=== PATIENT | male | born 1980 | race American Indian/Alaskan Native ===

== ENCOUNTER 2017-05-03 11:25 | Emergency (ER) | payer OTHER, MEDICAID ==
[2017-05-03 11:33] VITALS: BP 122/75; PULSE 97; RESP 18; TEMP 99.2; O2SAT 98
--- NOTE | 2017-05-03 13:11 | ED PDOC ---
HPI: Dental Pain/Injury Time Seen by Provider: 05/03/17 11:57 Chief Complaint (Nursing): Dental Pain Chief Complaint (Provider): Dental Pain History Per: Patient History/Exam Limitations: no limitations Onset/Duration Of Symptoms: Other (x 1 week) Current Symptoms Are (Timing): Still Present Additional Complaint(s): Andres is a 37 year old male who presents to the emergency department complaining of left lower tooth pain for 1 week. Patient reports tooth hurts when he eats and chews, but is not constant. Denies taking pain medications or antibiotics. Patient reports he saw dentist and did an X-Ray. Patient was told everything was okay. PMD: Alphonso Hanks Past Medical History Reviewed: Historical Data, Nursing Documentation, Vital Signs Vital Signs: Last Vital Signs Temp 99.2 F 05/03/17 11:29 Pulse 97 H 05/03/17 11:29 Resp 18 05/03/17 11:29 BP 122/75 05/03/17 11:29 Pulse Ox 98 05/03/17 11:29 - Medical History PMH: No Chronic Diseases - Surgical History Surgical History: No Surg Hx - Family History Family History: States: Unknown Family Hx - Allergies Allergies/Adverse Reactions: Allergies Allergy/AdvReac Type Severity Reaction Status Date / Time No Known Allergies Allergy Verified 05/03/17 11:29 Review of Systems ROS Statement: Except As Marked, All Systems Reviewed And Found Negative ENT: Positive for: Other (Left Lower Tooth Pain) Physical Exam - Reviewed Nursing Documentation Reviewed: Yes Vital Signs Reviewed: Yes - Physical Exam Appears: Positive for: Well ((+): Comfortable), No Acute Distress ENT: Positive for: Normal ENT Inspection, Other (2nd molar left lower jaw: cavity with filling noted with no tenderness or sweling) Neck: Positive for: Normal ((+): No Lymphadenopathy) Extremity: Positive for: Normal ROM Neurologic/Psych: Positive for: Alert, Oriented (x 3) - ECG O2 Sat by Pulse Oximetry: 98 (RA) Pulse Ox Interpretation: Normal Medical Decision Making Medical Decision Making: Impression: Toothache r/o Tooth Infection Patient will be given Augmentin (Antibiotic) and must follow up with dentist. Scribe Attestation: Documented by Francisco Granados, acting as a scribe for Dawson Covarrubias MD Provider Scribe Attestation: All medical record entries made by the Scribe were at my direction and personally dictated by me. I have reviewed the chart and agree that the record accurately reflects my personal performance of the history, physical exam, medical decision making, and the department course for this patient. I have also personally directed, reviewed, and agree with the discharge instructions and disposition. Disposition - Clinical Impression Clinical Impression: Toothache - Patient ED Disposition Is Patient to be Admitted: No Doctor Will See Patient In The: Office Counseled Patient/Family Regarding: Studies Performed, Diagnosis, Need For Followup - Disposition Referrals: [facility] [Outside] Podiatry Clinic [Outside] Disposition: Routine/Home Disposition Time: 12:47 Condition: GOOD Additional Instructions: Follow up with your PCP in 2-3 days. Instructions: Toothache (ED)
== END 2017-05-03 14:45 | disposition home or self-care (01) ==
LOC: H.ER 11:25
DX: K08.89 Other specified disorders of teeth and supporting structures (principal)

== ENCOUNTER 2017-06-02 11:45 | Emergency (ER) | payer MEDICAID, MEDICARE, OTHER ==
[2017-06-02 12:25] VITALS: RESP 18; TEMP 97.9; O2SAT 100
[2017-06-02] MEDS ORDERED: Sodium Chloride 0.9% 1,000 ML IV STA (12:49)
--- NOTE | 2017-06-02 12:50 | ED PDOC ---
HPI: Headache Time Seen by Provider: 06/02/17 12:18 Chief Complaint (Nursing): Headache Chief Complaint (Provider): Headache History Per: Patient History/Exam Limitations: no limitations Current Symptoms Are (Timing): Still Present Pain Scale Rating Of: 8 Additional Complaint(s): Andres is a 37 y/o male with a history of depression and bipolar disorder who presents to the ED complaining of a headache rated as 8/10 in severity. Patient also complains of some diarrhea and congestion but denies fever, vomiting, cough , body aches, chills, or throat pain. No meds taken for headache pain. Patient states this is not the worst headache of his life. PMD: Dr. Hanks Past Medical History Reviewed: Historical Data, Nursing Documentation, Vital Signs Vital Signs: Last Vital Signs Temp 97.9 F 06/02/17 12:21 Pulse 60 06/02/17 12:21 Resp 18 06/02/17 12:21 BP 111/61 06/02/17 12:21 Pulse Ox 100 06/02/17 12:21 - Medical History PMH: Bipolar Disorder, Depression - Surgical History Other surgeries: ingrown toenail removal - Family History Family History: States: No Known Family Hx - Living Arrangements Living Arrangements: With Family - Social History Current smoker - smoking cessation education provided: No Alcohol: None Drugs: Denies - Home Medications Home Medications: Ambulatory Orders Medication Instructions Recorded Amoxicillin/Clavulanate [Augmentin 1 tab PO BID #14 tab 05/03/17 875 MG-125 MG] Ibuprofen [Motrin] 600 mg PO Q6 PRN #15 tab 06/02/17 - Allergies Allergies/Adverse Reactions: Allergies Allergy/AdvReac Type Severity Reaction Status Date / Time No Known Allergies Allergy Verified 06/02/17 12:43 Review of Systems ROS Statement: Except As Marked, All Systems Reviewed And Found Negative Constitutional: Negative for: Fever, Chills, Other (body aches) ENT: Positive for: Nose Congestion. Negative for: Throat Pain Cardiovascular: Negative for: Chest Pain Respiratory: Negative for: Cough Gastrointestinal: Positive for: Diarrhea. Negative for: Nausea, Vomiting, Abdominal Pain Genitourinary Male: Negative for: Dysuria Neurological: Positive for: Headache. Negative for: Weakness, Numbness, Incoordination, Change in Speech, Confusion, Seizures, Altered Mental Status, Dizziness Physical Exam - Reviewed Nursing Documentation Reviewed: Yes Vital Signs Reviewed: Yes - Physical Exam Appears: Positive for: Well, Non-toxic, No Acute Distress Head Exam: Positive for: ATRAUMATIC Skin: Positive for: Normal Color, Warm, Dry Eye Exam: Positive for: Normal appearance ENT: Positive for: Normal ENT Inspection Neck: Positive for: Normal, Painless ROM. Negative for: Pain On Movement Of Neck Cardiovascular/Chest: Positive for: Regular Rate, Rhythm. Negative for: Murmur Respiratory: Positive for: Normal Breath Sounds. Negative for: Respiratory Distress Gastrointestinal/Abdominal: Positive for: Normal Exam, Soft. Negative for: Tenderness Back: Positive for: Normal Inspection Extremity: Positive for: Normal ROM. Negative for: Pedal Edema Neurologic/Psych: Positive for: Alert, Oriented. Negative for: Motor/Sensory Deficits - Laboratory Results Result Diagrams: 06/02/17 13:17 06/02/17 13:17 - ECG O2 Sat by Pulse Oximetry: 100 (RA) Pulse Ox Interpretation: Normal Medical Decision Making Medical Decision Making: Time: 12:48 Initial Impression: 37 y/o male with headache and generalized malaise Initial Plan: --CMP --CBC --Motrin --Tylenol --Flu Swab --IVF Flu Swab: Negative Patient states headache resolved completely after medications were administered. Patient feels much better. He tolerated meal in ED. Prescription given for Motrin to take as needed for headache pain, advised fluids, rest and follow-up with primary doctor. Scribe Attestation: Documented by Gustavo Ashton, acting as a scribe for Erica Khan PA-C. Provider Scribe Attestation: All medical record entries made by the Scribe were at my direction and personally dictated by me. I have reviewed the chart and agree that the record accurately reflects my personal performance of the history, physical exam, medical decision making, and the department course for this patient. I have also personally directed, reviewed, and agree with the discharge instructions and disposition. Disposition - Clinical Impression Clinical Impression: Headache - Patient ED Disposition Is Patient to be Admitted: No Counseled Patient/Family Regarding: Studies Performed, Diagnosis, Need For Followup, Rx Given - Disposition Referrals: Alphonso Hanks MD [Family Provider] - Disposition: Routine/Home Disposition Time: 13:58 Condition: IMPROVED Additional Instructions: Take prescription medicines directed as needed for headache. Plenty of fluids and get plenty of rest. Follow up with primary doctor in 2-3 days. Prescriptions: Ibuprofen [Motrin] 600 mg PO Q6 PRN #15 tab PRN Reason: Pain, Moderate (4-7) Instructions: Headache, Adult (DC) Forms: [facility] ([place]), [facility] ED School/Work Excuse
[2017-06-02 13:27] LABS: BASO % 0.2 % (0.0-2.0); EOS % 0.2 % (0.0-4.0); HEMOGLOBIN 12.4 g/dL (12.0-18.0); LYMPH # 0.8 K/uL (1.0-4.3); LYMPH % 5.5 % (20.0-40.0); MEAN CELL VOLUME 77.4 fl (80.0-94.0); MEAN CORPUSCULAR HEMOGLOBIN 24.8 pg (27.0-31.0); MEAN PLATELET VOLUME 9.4 fl (7.2-11.7); MONO # 0.6 K/uL (0.0-0.8); MONO % 3.9 % (0.0-10.0); NEUT # 13.6 K/uL (1.8-7.0); NEUT % 90.2 % (50.0-75.0); NRBC % 0.1 % (0.0-0.0); PLATELET COUNT 187 K/uL (130-400); RBC 5.02 Mil/uL (4.40-5.90); WHITE BLOOD COUNT 15.1 K/uL (4.8-10.8)
[2017-06-02 13:40] LABS: ALB/GLOB RATIO 1.2 (1.0-2.1); ALBUMIN 4.1 g/dL (3.5-5.0); ALT/SGPT 31 U/L (21-72); AST/SGOT 29 U/L (17-59); BLOOD UREA NITROGEN 14 mg/dl (9-20); CALCIUM 9.5 mg/dL (8.4-10.2); GFR AFRICAN-AMERICAN > 60; GFR NON-AFRICAN AMERICAN > 60
[2017-06-02 14:12] LABS: LYMPHOCYTE 9 % (20-50); MONOCYTE 5 % (0-10); NEUTROPHIL 86 % (42-75); TOTAL CELLS COUNTED 100
[2017-06-02 14:13] LABS: ANISOCYTOSIS SLIGHT; MICROCYTOSIS SLIGHT; PLATELET ESTIMATE NORMAL (NORMAL)
[2017-06-02 15:16] VITALS: BP 111/60; PULSE 71
== END 2017-06-02 15:16 | disposition home or self-care (01) ==
LOC: H.ER 11:45
DX: R51 Headache (principal); F31.9 Bipolar disorder, unspecified
CPT/HCPCS: 80053; 85025; 87804; 99284; J7040

== ENCOUNTER 2017-06-07 15:27 | Inpatient (IN) | payer OTHER, MEDICAID ==
[2017-06-07 15:37] VITALS: O2SAT 100
--- NOTE | 2017-06-07 15:43 | ED PDOC ---
HPI: Psych/Substance Abuse Time Seen by Provider: 06/07/17 15:39 Chief Complaint (Nursing): Psychiatric Evaluation Chief Complaint (Provider): suicidal ideation History Per: Patient Additional Complaint(s): 37-year-old male with history of depression, bipolar disorder and schizophrenia presents to emergency department with suicidal ideation. Patient states over the weekend he had thoughts of overdosing on his medications. He did not do so. Patient states he feels as if his meds are not helping him. He offers no medical complaints and denies alcohol or drug use. Past Medical History Reviewed: Historical Data, Nursing Documentation, Vital Signs Vital Signs: Last Vital Signs Temp 97.8 F 06/07/17 15:31 Pulse 123 H 06/07/17 15:31 Resp 18 06/07/17 15:31 BP 122/75 06/07/17 15:31 Pulse Ox 100 06/07/17 15:31 - Medical History PMH: Bipolar Disorder, Depression, Schizophrenia - Family History Family History: States: No Known Family Hx - Living Arrangements Living Arrangements: With Family - Social History Current smoker - smoking cessation education provided: No Alcohol: None Drugs: Denies - Home Medications Home Medications: Ambulatory Orders Medication Instructions Recorded DULoxetine [Cymbalta] 60 mg PO DAILY 06/07/17 [place] Carbonate [[place] 300 mg PO Q12 06/07/17 Carbonate 300MG] Multivitamin [Multi-Vitamin Daily] 1 tab PO DAILY 06/07/17 Paliperidone Palmitate [Invega 156 mg IM Q30D 06/07/17 Sustenna] - Allergies Allergies/Adverse Reactions: Allergies Allergy/AdvReac Type Severity Reaction Status Date / Time No Known Allergies Allergy Verified 06/02/17 12:43 Review of Systems ROS Statement: Except As Marked, All Systems Reviewed And Found Negative Psych: Positive for: Depression, Suicidal ideation Physical Exam - Reviewed Nursing Documentation Reviewed: Yes Vital Signs Reviewed: Yes - Physical Exam Appears: Positive for: Well, Non-toxic, No Acute Distress Skin: Negative for: Rash Eye Exam: Positive for: Normal appearance Cardiovascular/Chest: Positive for: Regular Rate, Rhythm Respiratory: Positive for: Normal Breath Sounds Gastrointestinal/Abdominal: Positive for: Soft. Negative for: Tenderness, Distended, Guarding, Rebound Extremity: Positive for: Normal ROM Neurologic/Psych: Positive for: Alert, Oriented - Laboratory Results Result Diagrams: 06/07/17 16:27 06/07/17 16:27 - ECG O2 Sat by Pulse Oximetry: 100 Pulse Ox Interpretation: Normal - Other Rad CXR X-Ray: Interpreted by Me, Viewed By Me X-Ray Interpretation: no acute finding Medical Decision Making Medical Decision Makin37 year old male with suicidal ideation Plan: 1:1 bedside observation Crisis eval CBC CMP BAL UDS UA CXR [place] level As per crisis counselor and psychiatrist conditioner tender, Dr Brown, patient does meet criteria for admission. Patient agrees with stay. Patient is medically stable for psychiatric admission. Disposition - Clinical Impression Clinical Impression: Depression - Disposition Disposition Time: 18:53 Condition: FAIR - Pt Status Changed To: Hospital Disposition Of: Inpatient - Admit Certification Admit to Inpatient:: After my assessment, the patient will require hospitalization for at least two midnights. This is because of the severity of symptoms shown, intensity of services needed, and/or the medical risk in this patient being treated as an outpatient. Results - Lab Results Lab Results: 06/07/17 06/07/17 06/07/17 16:27 16:27 16:27 WBC 8.2 RBC 5.47 Hgb 13.7 Hct 42.7 MCV 78.0 L MCH 25.0 L MCHC 32.1 L RDW 15.3 H Plt Count 222 MPV 9.9 Neut % (Auto) 73.1 Lymph % (Auto) 18.5 L [place] % (Auto) 5.3 Eos % (Auto) 2.3 Baso % (Auto) 0.8 Neut # (Auto) 6.0 Lymph # (Auto) 1.5 [place] # (Auto) 0.4 Eos # (Auto) 0.2 Baso # (Auto) 0.1 Sodium Potassium Chloride Carbon Dioxide Anion Gap BUN Creatinine Est GFR ( Amer) Est GFR (Non-Af Amer) Random Glucose Calcium Total Bilirubin AST ALT Alkaline Phosphatase Total Protein Albumin Globulin Albumin/Globulin Ratio Urine Color Yellow Urine Clarity Slighty-cloudy Urine pH 6.0 Ur Specific [place] 1.031 H Urine Protein 30 Urine Glucose (UA) Neg Urine Ketones Trace Urine Blood Negative Urine Nitrate Negative Urine Bilirubin Negative Urine Urobilinogen 2.0 Ur Leukocyte Esterase Trace Urine RBC (Auto) 2 Urine Microscopic WBC < 1 Urine Opiates Screen Negative Urine Methadone Screen Negative Ur Barbiturates Screen Negative Ur Phencyclidine Scrn Negative Ur Amphetamines Screen Negative U Benzodiazepines Scrn Negative U Oth Cocaine Metabols Negative U Cannabinoids Screen Negative Alcohol, Quantitative 06/07/17 16:27 WBC RBC Hgb Hct MCV MCH MCHC RDW Plt Count MPV Neut % (Auto) Lymph % (Auto) [place] % (Auto) Eos % (Auto) Baso % (Auto) Neut # (Auto) Lymph # (Auto) [place] # (Auto) Eos # (Auto) Baso # (Auto) Sodium 141 Potassium 4.2 Chloride 98 Carbon Dioxide 27 Anion Gap 20 BUN 12 Creatinine 0.7 L Est GFR ( Amer) > 60 Est GFR (Non-Af Amer) > 60 Random Glucose 121 H Calcium 9.9 Total Bilirubin 0.9 AST 31 ALT 35 Alkaline Phosphatase 68 Total Protein 7.8 Albumin 4.2 Globulin 3.6 Albumin/Globulin Ratio 1.2 Urine Color Urine Clarity Urine pH Ur Specific [place] Urine Protein Urine Glucose (UA) Urine Ketones Urine Blood Urine Nitrate Urine Bilirubin Urine Urobilinogen Ur Leukocyte Esterase Urine RBC (Auto) Urine Microscopic WBC Urine Opiates Screen Urine Methadone Screen Ur Barbiturates Screen Ur Phencyclidine Scrn Ur Amphetamines Screen U Benzodiazepines Scrn U Oth Cocaine Metabols U Cannabinoids Screen Alcohol, Quantitative < 10
[2017-06-07 16:35] LABS: BASO # 0.1 K/uL (0.0-0.2); BASO % 0.8 % (0.0-2.0); EOS # 0.2 K/uL (0.0-0.7); EOS % 2.3 % (0.0-4.0); HEMOGLOBIN 13.7 g/dL (12.0-18.0); LYMPH # 1.5 K/uL (1.0-4.3); LYMPH % 18.5 % (20.0-40.0); MEAN CORPUSCULAR HGB CONC 32.1 g/dL (33.0-37.0); MEAN PLATELET VOLUME 9.9 fl (7.2-11.7); MONO # 0.4 K/uL (0.0-0.8); MONO % 5.3 % (0.0-10.0); NEUT % 73.1 % (50.0-75.0); NRBC % 0.1 % (0.0-0.0); RBC 5.47 Mil/uL (4.40-5.90); RED CELL DISTRIBUTION WIDTH 15.3 % (11.5-14.5); WHITE BLOOD COUNT 8.2 K/uL (4.8-10.8)
[2017-06-07 16:51] LABS: URINE BILIRUBIN NEGATIVE (NEGATIVE); URINE BLOOD NEGATIVE (NEGATIVE); URINE CLARITY SLIGHTY-CLOUDY (Clear); URINE COLOR YELLOW (YELLOW); URINE GLUCOSE (UA) NEG (Normal); URINE LEUKOCYTE ESTERASE TRACE Leu/uL (Negative); URINE PROTEIN 30 mg/dL (NEGATIVE)
[2017-06-07 16:55] LABS: ALB/GLOB RATIO 1.2 (1.0-2.1); ALBUMIN 4.2 g/dL (3.5-5.0); ALT/SGPT 35 U/L (21-72); AST/SGOT 31 U/L (17-59); BLOOD UREA NITROGEN 12 mg/dl (9-20); CALCIUM 9.9 mg/dL (8.4-10.2); GFR AFRICAN-AMERICAN > 60; GFR NON-AFRICAN AMERICAN > 60
--- NOTE | 2017-06-07 16:57 | RAD ---
HISTORY: Medical clearance COMPARISON: No prior. FINDINGS: LUNGS: No active pulmonary disease. PLEURA: No significant pleural effusion identified, no pneumothorax apparent. CARDIOVASCULAR: Normal. OSSEOUS STRUCTURES: No significant abnormalities. VISUALIZED UPPER ABDOMEN: Normal. OTHER FINDINGS: None. IMPRESSION: No active disease.
[2017-06-07 17:00] LABS: BARBITURATES, UR NEGATIVE (NEGATIVE); BENZODIAZEPINES, UR NEGATIVE (NEGATIVE); OPIATES, UR NEGATIVE (NEGATIVE); PHENCYCLIDINE, UR NEGATIVE (NEGATIVE)
--- NOTE | 2017-06-07 19:49 | PCM.BM ---
<Nikhil Sapp - Last Filed: 06/07/17 19:47> Treatment Plan Problems - Problems identified on initial assessmt hopelessness/Helplessness Date Initiated: 06/07/17 Time Initiated: 19:48 Assessment reference: NA Status: Active Treatment assets and liabiliti Patient Assests: adapts well, cooperative, motivated, resourceful, physically healthy, negotiates basic needs, cognitively intact Patient Liabilities: financial problems - Milieu Protocol Maintain good personal hygiene: daily Encourage regular showers, daily Remind patient to perform daily oral care, daily Assist patient to perform ADL's Maintain personal safety: every shift Educate patient to report safety concerns to staff, every shift Monitor environment for contraband/sharps Medication safety: Monitor for expected outcome, potential side effects: every shift, Assess barriers to learning: every shift, Assess readiness for medication education: every shift <Mae Barbosa - Last Filed: 06/08/17 09:31> - Diagnosis (1) Schizoaffective disorder Status: Acute Interventions: Medication management, Individual and group therapy, Psychoeducation 06/08/17 09:31 <Addison Lomas - Last Filed: 06/09/17 16:03> Family Contact Family involvement: Family/SO is involved Family contact: Patient agrees to contact, Family has been contacted by patient , Telephone contact initiated by staff Family contact name: Jodie (Mother) Family contacted how many times per week?: 4 Family contact comment: Parimutuel Cashier spoke with pt's mother, Jodie ([phone]), to give updates and ask for collateral. Jodie reported that pt lives with her and his father and feels that his main problem is that he tries to do too much and overexerts himself. Jodie reported that Dorothy Alvarado from [facility] called her and let her know that pt was hospitalized. Parimutuel Cashier reported that it is too early to know length of stay and if medications will be changed. Parimutuel Cashier will continue to update pt's mother once treatment plan is initiated. - Goals for Treatment Patient goals for treatment: Pt reported that he would like to feel less depressed and be able to do hold a job and find a romantic partner. Patient's family/SO goals for treatment: Pt's mother would like pt to slow down and take more time for himself. Discharge/Continuing Care - Education Needs Education Needs: Family Medication, Family Diagnosis/Disease Process, Family Coping Skills, Family Community resources, Family Aftercare Safety Plan, Patient Medication, Patient Diagnosis/Disease Process, Patient Coping Skills, Patient Community resources, Patient Aftercare Safety Plan - Discharge Discharge Criteria: Tolerates medication w/o severe side effects, Free of Suicidal thoughts, Free of paranoid thoughts, Free of agitation, Reduction of target symptoms Discharge to:: Home, With Family - Additional Comments 06/09/17 16:01 Pt came to team meeting and was agreeable to medication changes. Pt reported that he was still feeling depressed at times, but denied SI and felt safe on the unit. pt denied hx of psychotic symptoms. Pt and insurance underwriter had a dialogue about pt returning to [facility] or being referred [place] [facility] Pt reported that he would think about it and let the insurance underwriter know. Dr. Barbosa would like to hold pt until 06/12 until a [place] level can be obtained. Pt was agreeable to this. - Treatment Team Participation Discussed with Family/SO: Yes Was Patient/Family/SO present at Treatment Team Meeting: Yes
[2017-06-07] MEDS ORDERED: Magnesium Hydroxide Susp 30 ml UD PO PRN (19:50)
[2017-06-07] MEDS ORDERED: DiphenhydrAMINE 50 mg/ml Inj IM PRN (19:50)
[2017-06-07] MEDS ORDERED: Alum-Mag Hydrox-Simethicone Susp (30 mL) PO PRN (19:50)
[2017-06-08 06:26] LABS: T4 6.11 ug/dl (5.5-11.0)
--- NOTE | 2017-06-08 08:15 | CARD ---
APPROVED REPORT EKG Measurement Heart [id number] <Conclusion> Normal sinus rhythm with sinus arrhythmia Normal ECG
--- NOTE | 2017-06-08 09:32 | PCM.PSYCH ---
Initial Psychiatric Evaluation - Initial Psychiatric Evaluation Type of Admission: Voluntary Legal Status: Capacity Chief Complaint (in patient's own words): "I've been depressed." Patient's Reaction to Hospitalization: HPI: 37 yo male w/ h/o schizoaffective disorder, presents with worsening depression and intermittent suicidal ideation. Patient reports that he was acutely suicidal Wednesday night, w/ plan to overdose on his pills. He denies active suicidal ideation/plan/intent and is able to contract for safety on the unit. He reports that he did not take his [place] for a few days. He also reports feeling like he is having strange thoughts and that his mind is playing tricks on him. On admission he reported passive ideations that he would not be alive anymore. He denies AH/VH. He denies acute paranoia, but seems guarded w / technical document writer. +Sleep/appetite disturbances. +Feeling helpless/ hopeless. PPHx: H/o multiple past hospitalizations, including to [place], [facility], [facility]. He is currently being treatment at the partial program w/ Invega Sustenna (last given May 05, 156 mg; patient missed next injection), [place] and Cymbalta. PMHx: Denies acute medical issues ALL: NKDA SHx: On SSD, used to be in the [place]; lives w/ his family; no drugs/etoh/cig Current Medications: Active Medications Generic Name Dose Route Start Last Admin Trade Name Freq PRN Reason Stop Dose Admin Acetaminophen 650 mg 06/07/17 19:50 Tylenol 325mg Tab PO Q4 PRN for 4-7 pain Al Hydrox/Mg Hydrox/Simethicone 30 ml 06/07/17 19:50 Maalox Plus 30 Ml PO Q4 PRN Dyspepsia Diphenhydramine HCl 50 mg 06/07/17 19:50 Benadryl IM Q6 PRN Extrapyramidal S/S Unable PO Diphenhydramine HCl 50 mg 06/07/17 19:50 Benadryl PO Q6 PRN Extrapyramidal Symptoms Diphenhydramine HCl 50 mg 06/07/17 19:50 06/07/17 23:19 Benadryl PO 50 mg HS PRN Administration Sleep Duloxetine HCl 60 mg 06/08/17 09:00 06/08/17 08:43 Cymbalta PO 60 mg DAILY PORTILLO Administration Haloperidol 5 mg 06/07/17 19:50 Haldol PO Q4 PRN Agitation Haloperidol Lactate 5 mg 06/07/17 19:50 Haldol IM Q4 PRN Agitation, Unable to Take PO Lorazepam 2 mg 06/07/17 19:50 Ativan IM Q4 PRN Anxiety/Agitation,Unable PO Lorazepam 2 mg 06/07/17 19:50 Ativan PO Q4 PRN Anxiety/Agitation Magnesium Hydroxide 30 ml 06/07/17 19:50 Milk Of Magnesia PO HS PRN Constipation Trazodone HCl 50 mg 06/07/17 22:00 06/07/17 21:18 Desyrel PO 50 mg HS PORTILLO Administration Past Psychiatric History - Past Psychiatric History Previous Treatment History: Inpatient Pertinent Medical Hx (Current Medical&Sleep Prob, Allergies): Allergies Allergy/AdvReac Type Severity Reaction Status Date / Time No Known Allergies Allergy Verified 06/02/17 12:43 DULoxetine [Cymbalta] 60 mg PO DAILY 06/07/17 [place] Carbonate [[place] Carbonate 300MG] 300 mg PO Q12 06/07/17 Multivitamin [Multi-Vitamin Daily] 1 tab PO DAILY 06/07/17 Paliperidone Palmitate [Invega Sustenna] 156 mg IM Q30D 06/07/17 Review of Systems - Psychiatric Psychiatric: Anxiety, Change in Appetite, Depression, Mood Swings, Suicidal Ideation Mental Status Examination - Personal Presentation Personal Presentation: Looks stated age - Affect Affect: Constricted, Depressed - Motor Activity Motor Activity: Calm - Reliability in Providing Information Reliability in Providing Information: Fair - Speech Speech: Organized, Coherent - Mood Mood: Depressed - Formal Thought Process Formal Thought Process: Paranoia (Possible paranoia, patient is guarded w/ information) - Hallucinations/Delusions Additional comments: NO AH/VH - Obsessions/Compulsions Obsessions: No Compulsions: No - Cognitive Functions Orientation: Person, Place, Situation, Time Sensorium: Alert Attention/Concentration: Attentive Estimate of Intelligence: Average Judgement: Intact, as evidence by: Insight regarding need for hospitalization Memory: Recent intact, as evidence by: Ability to recall events of the day, Remote intact, as evidenced by: Abilit to recall sig. life events, Remote intact , as evidenced by: Ability to recall historical events - Risk Risk: Suicidal, Diminished functioning - Strength & Assets Inventory Strength & Assets Inventory: Family support DSM 5 DX - DSM 5 DSM 5 Diagnosis: Schizoaffective Disorder - Recommended/Plan of Treatment Treatment Recommendations and Plan of Treatment: Schizoaffective Disorder -Admit to psychiatry unit -Individual and group therapy -Psychoeducation -Restart [place] 300 mg PO Q12, Li level <0.2 (Patient has been non-compliant) -Increase Invega Sustenna to 234 mg PO QMonthly 06/08/17 (patient missed dosage last week) -Continue Cymbalta 60 mg PO Daily -Obtain collateral history -Disposition planning -Medicine consult Projected ELOS: 7-10 days Discharge Plan and Discharge Criteria: Discharge patient when he is psychiatrically stable - Smoking Cessation Smoking Cessation Initiated: No Reason for not providing: Not indicated
[2017-06-08] MEDS ORDERED: Paliperidone Palmitate 234 MG/1.5 ML SYR IM ONE (10:14)
[2017-06-08] MEDS: Multivitamin With Minerals Tab PO SCH (11:26)
--- NOTE | 2017-06-08 12:43 | CP.PCM.HP ---
History of Present Illness - History of Present Illness History of Present Illness: CC: Suicidal Ideation Hisoty of Present Illness: A 37-year-old male with history of depression, bipolar disorder and schizophrenia presents to emergency department with suicidal ideation. Patient states over the weekend he had thoughts of overdosing on his medications. He did not do so. Patient states he feels as if his meds are not helping him. He offers no medical complaints and denies alcohol or drug use. Present on Admission - Present on Admission Any Indicators Present on Admission: No Review of Systems - Review of Systems All systems: reviewed and no additional remarkable complaints except - Psychiatric Psychiatric: As Per HPI Past Patient History - Past Medical History & Family History Past Medical History?: No Past Family History: Reviewed and not pertinent - Past Social History Smoking Status: Never Smoked Alcohol: None Drugs: Denies - CARDIAC Hx Cardiac Disorders: No Hx Hypertension: No - PULMONARY Hx Tuberculosis: No - NEUROLOGICAL HX Cerebrovascular Accident: No Hx Seizures: No - HEMATOLOGICAL/ONCOLOGICAL Hx Cancer: No Hx Human Immunodeficiency Virus (HIV): No - GENITOURINARY/GYNECOLOGICAL Hx Sexually Transmitted Disorders: No - PSYCHIATRIC Hx Depression: Yes Hx Substance Use: No Meds Home Medications: Home Medication List Medication Instructions Recorded Confirmed Type DULoxetine [Cymbalta] 60 mg PO DAILY #30 ecc 06/10/17 Rx [place] Carbonate [[place] 300 mg PO Q12 #60 cap 06/10/17 Rx Carbonate 300MG] Allergies/Adverse Reactions: Allergies Allergy/AdvReac Type Severity Reaction Status Date / Time No Known Allergies Allergy Verified 06/02/17 12:43 Physical Exam - Constitutional Appears: Well - Head Exam Head Exam: ATRAUMATIC, NORMAL INSPECTION, NORMOCEPHALIC - Eye Exam Eye Exam: EOMI, Normal appearance, PERRL Pupil Exam: NORMAL ACCOMODATION, PERRL - ENT Exam ENT Exam: Mucous Membranes Moist, Normal Exam - Neck Exam Neck exam: Positive for: Normal Inspection - Respiratory Exam Respiratory Exam: Clear to Auscultation Bilateral, NORMAL BREATHING PATTERN - Cardiovascular Exam Cardiovascular Exam: REGULAR RHYTHM, +S1, +S2 - GI/Abdominal Exam GI & Abdominal Exam: Normal Bowel Sounds, Soft. absent: Tenderness - Extremities Exam Extremities exam: Positive for: full ROM, normal capillary refill, normal inspection - Back Exam Back exam: CVA tenderness (L), CVA tenderness (R), FULL ROM, NORMAL INSPECTION - Neurological Exam Neurological exam: Alert, CN II-XII Intact, Normal Gait, Oriented x3, Reflexes Normal - Psychiatric Exam Psychiatric exam: Depressed, Manic, Suicidal Ideation - Skin Skin Exam: Dry, Intact, Normal Color, Warm Results - Vital Signs Recent Vital Signs: Last Vital Signs Temp 97.9 F 06/08/17 05:52 Pulse 63 06/08/17 05:52 Resp 18 06/08/17 05:52 BP 104/64 06/08/17 05:52 Pulse Ox 100 06/07/17 18:53 - Labs Result Diagrams: 06/07/17 16:27 06/07/17 16:27 Labs: Laboratory Results - last 24 hr 06/07/17 06/07/17 06/07/17 16:27 16:27 16:27 WBC 8.2 RBC 5.47 Hgb 13.7 Hct 42.7 MCV 78.0 L MCH 25.0 L MCHC 32.1 L RDW 15.3 H Plt Count 222 MPV 9.9 Neut % (Auto) 73.1 Lymph % (Auto) 18.5 L [place] % (Auto) 5.3 Eos % (Auto) 2.3 Baso % (Auto) 0.8 Neut # (Auto) 6.0 Lymph # (Auto) 1.5 [place] # (Auto) 0.4 Eos # (Auto) 0.2 Baso # (Auto) 0.1 Sodium 141 Potassium 4.2 Chloride 98 Carbon Dioxide 27 Anion Gap 20 BUN 12 Creatinine 0.7 L Est GFR ( Amer) > 60 Est GFR (Non-Af Amer) > 60 Random Glucose 121 H Hemoglobin A1c Calcium 9.9 Total Bilirubin 0.9 AST 31 ALT 35 Alkaline Phosphatase 68 Total Protein 7.8 Albumin 4.2 Globulin 3.6 Albumin/Globulin Ratio 1.2 Triglycerides Cholesterol LDL Cholesterol Direct HDL Cholesterol Thyroxine (T4) TSH 3rd Generation Urine Color Urine Clarity Urine pH Ur Specific [place] Urine Protein Urine Glucose (UA) Urine Ketones Urine Blood Urine Nitrate Urine Bilirubin Urine Urobilinogen Ur Leukocyte Esterase Urine RBC (Auto) Urine Microscopic WBC Urine Opiates Screen Negative Urine Methadone Screen Negative Ur Barbiturates Screen Negative Ur Phencyclidine Scrn Negative Ur Amphetamines Screen Negative U Benzodiazepines Scrn Negative [place] U Oth Cocaine Metabols Negative U Cannabinoids Screen Negative Alcohol, Quantitative < 10 06/07/17 06/07/17 06/08/17 16:27 18:33 05:30 WBC RBC Hgb Hct MCV MCH MCHC RDW Plt Count MPV Neut % (Auto) Lymph % (Auto) [place] % (Auto) Eos % (Auto) Baso % (Auto) Neut # (Auto) Lymph # (Auto) [place] # (Auto) Eos # (Auto) Baso # (Auto) Sodium Potassium Chloride Carbon Dioxide Anion Gap BUN Creatinine Est GFR ( Amer) Est GFR (Non-Af Amer) Random Glucose Hemoglobin A1c Calcium Total Bilirubin AST ALT Alkaline Phosphatase Total Protein Albumin Globulin Albumin/Globulin Ratio Triglycerides 89 D Cholesterol 164 LDL Cholesterol Direct 93 HDL Cholesterol 47 Thyroxine (T4) 6.11 TSH 3rd Generation 1.54 Urine Color Yellow Urine Clarity Slighty-cloudy Urine pH 6.0 Ur Specific [place] 1.031 H Urine Protein 30 Urine Glucose (UA) Neg Urine Ketones Trace Urine Blood Negative Urine Nitrate Negative Urine Bilirubin Negative Urine Urobilinogen 2.0 Ur Leukocyte Esterase Trace Urine RBC (Auto) 2 Urine Microscopic WBC < 1 Urine Opiates Screen Urine Methadone Screen Ur Barbiturates Screen Ur Phencyclidine Scrn Ur Amphetamines Screen U Benzodiazepines Scrn Mill[place] < 0.2 L U Oth Cocaine Metabols U Cannabinoids Screen Alcohol, Quantitative 06/08/17 05:30 WBC RBC Hgb Hct MCV MCH MCHC RDW Plt Count MPV Neut % (Auto) Lymph % (Auto) [place] % (Auto) Eos % (Auto) Baso % (Auto) Neut # (Auto) Lymph # (Auto) [place] # (Auto) Eos # (Auto) Baso # (Auto) Sodium Potassium Chloride Carbon Dioxide Anion Gap BUN Creatinine Est GFR ( Amer) Est GFR (Non-Af Amer) Random Glucose Hemoglobin A1c 5.2 Calcium Total Bilirubin AST ALT Alkaline Phosphatase Total Protein Albumin Globulin Albumin/Globulin Ratio Triglycerides Cholesterol LDL Cholesterol Direct HDL Cholesterol Thyroxine (T4) TSH 3rd Generation Urine Color Urine Clarity Urine pH Ur Specific [place] Urine Protein Urine Glucose (UA) Urine Ketones Urine Blood Urine Nitrate Urine Bilirubin Urine Urobilinogen Ur Leukocyte Esterase Urine RBC (Auto) Urine Microscopic WBC Urine Opiates Screen Urine Methadone Screen Ur Barbiturates Screen Ur Phencyclidine Scrn Ur Amphetamines Screen U Benzodiazepines Scrn Mill[place] U Oth Cocaine Metabols U Cannabinoids Screen Alcohol, Quantitative - Imaging and Cardiology Chest x-ray Status: Report reviewed by me Additional comment: No Active Disease Assessment & Plan (1) Suicidal ideation Assessment and Plan: Depression Contine Treatment as per Psych Recommendation TSH Vitamin b12 Status: Acute
--- NOTE | 2017-06-09 07:50 | PCM.PYCHPN ---
Psychiatric Progress Note - Psychiatric Progress Note Patient seen today, length of contact: Patient evaluated, case discussed with team, chart reviewed Patient Chief Complaint: "I've been depressed." Problems Identified/Issues Discussed: Patient reports that he continues to feel depressed, w/ low motivation and hopelessness. He continues to be oddly related at times, but denies AH/VH/SI/ HI. He denies acute suicidal ideation/plan/intent. Medication Change: No Medical Record Reviewed: Yes Consults ordered or reviewed: Medicine consult Mental Status Examination - Cognitive Function Orientation: Person, Place, Situation, Time Memory: Intact Attention: WNL Concentration: WNL Association: Loose Fund of Knowledge: [facility] Decription of patient's judgement and insights: Fair I/J - Mood Mood: Depressed - Affect Affect: Constricted, Depressed - Formal Thought Process Formal Thought Process: Paranoia (Possible paranoia, patient is guarded w/ information) - Suicidal Ideation Suicidal Ideation: No - Homicidal Ideation Homicidal Ideation: No Goal/Treatment Plan - Goal/Treatment Plan Need for Continued Stay: Remain at risks for inpatient hospitalization, Discharge may exacerbated symptoms Progress Toward Problem(s) and Goals/Treatment Plan: Schizoaffective Disorder -Individual and group therapy -Psychoeducation -Continue [place] 300 mg PO Q12 -Invega Sustenna 234 mg PO QMonthly given on 06/08/17 -Continue Cymbalta 60 mg PO Daily -Obtain collateral history -Disposition planning -Medicine consult
[2017-06-09] MEDS: Multivitamin With Minerals Tab PO SCH (08:37)
[2017-06-10] MEDS: Multivitamin With Minerals Tab PO SCH (08:22)
--- NOTE | 2017-06-10 09:19 | PCM.PYCHPN ---
Psychiatric Progress Note - Psychiatric Progress Note Patient seen today, length of contact: Patient evaluated, case discussed with team, chart reviewed Patient Chief Complaint: "I've been depressed." Problems Identified/Issues Discussed: Patient reports that he continues to feel depressed, but he is more goal oriented and hopeful for the future. He continues to be oddly related and intrusive at times, but denies AH/VH/SI/HI. He denies acute suicidal ideation/ plan/intent. Medication Change: No Medical Record Reviewed: Yes Consults ordered or reviewed: Medicine consult Mental Status Examination - Cognitive Function Orientation: Person, Place, Situation, Time Memory: Intact Attention: WNL Concentration: WNL Association: Loose Fund of Knowledge: WNL Decription of patient's judgement and insights: Fair I/J - Mood Mood: Depressed - Affect Affect: Constricted, Depressed - Formal Thought Process Formal Thought Process: Loosening of associations Psychotic Thoughts and Behaviors: Denies acute AH/VH/paranoia - Suicidal Ideation Suicidal Ideation: No - Homicidal Ideation Homicidal Ideation: No Goal/Treatment Plan - Goal/Treatment Plan Need for Continued Stay: Remain at risks for inpatient hospitalization, Severe depression anxiety, Discharge may exacerbated symptoms Progress Toward Problem(s) and Goals/Treatment Plan: Schizoaffective Disorder -Individual and group therapy -Psychoeducation -Continue [place] 300 mg PO Q12, check Li level -Invega Sustenna 234 mg PO QMonthly given on 06/08/17 -Continue Cymbalta 60 mg PO Daily -Obtain collateral history -Disposition planning -Medicine consult Estimated Date of D/C: 06/12/17 - Smoking Cessation Smoking Cessation Initiated: No Reason for not providing: Not indicated
--- NOTE | 2017-06-11 00:53 | CP.PCM.PN ---
Subjective - Date & Time of Evaluation Date of Evaluation: 06/09/17 Time of Evaluation: 17:00 - Subjective Subjective: C/O MARTINEZ which is relieved by Tylenol. No Other complaint. Objective - Vital Signs/Intake and Output Vital Signs (last 24 hours): Temp Pulse Resp BP Pulse Ox 98.2 F 87 19 100/60 100 06/10/17 16:03 06/10/17 16:03 06/10/17 16:03 06/10/17 16:03 06/07/17 18:53 - Medications Medications: Current Medications Acetaminophen (Tylenol 325mg Tab) 650 mg PO Q4 PRN PRN Reason: for 4-7 pain Last Admin: 06/09/17 11:46 Dose: 650 mg Al Hydrox/Mg Hydrox/Simethicone (Maalox Plus 30 Ml) 30 ml PO Q4 PRN PRN Reason: Dyspepsia Diphenhydramine HCl (Benadryl) 50 mg IM Q6 PRN PRN Reason: Extrapyramidal S/S Unable PO Diphenhydramine HCl (Benadryl) 50 mg PO Q6 PRN PRN Reason: Extrapyramidal Symptoms Diphenhydramine HCl (Benadryl) 50 mg PO HS PRN PRN Reason: Sleep Last Admin: 06/07/17 23:19 Dose: 50 mg Duloxetine HCl (Cymbalta) 60 mg PO DAILY [facility] Last Admin: 06/10/17 08:22 Dose: 60 mg Haloperidol (Haldol) 5 mg PO Q4 PRN PRN Reason: Agitation Haloperidol Lactate (Haldol) 5 mg IM Q4 PRN PRN Reason: Agitation, Unable to Take PO [place] Carbonate ([place] Carbonate 300mg) 300 mg PO Q12 [facility] Last Admin: 06/10/17 21:04 Dose: 300 mg Lorazepam (Ativan) 2 mg IM Q4 PRN PRN Reason: Anxiety/Agitation,Unable PO Lorazepam (Ativan) 2 mg PO Q4 PRN PRN Reason: Anxiety/Agitation Magnesium Hydroxide (Milk Of Magnesia) 30 ml PO HS PRN PRN Reason: Constipation Multivitamins/Minerals (Therapeutic-M Tab) 1 tab PO DAILY [facility] Last Admin: 06/10/17 08:22 Dose: 1 tab Trazodone HCl (Desyrel) 50 mg PO HS PRN PRN Reason: Insomnia - Labs Labs: 06/07/17 16:27 06/07/17 16:27 - Constitutional Appears: Well - Head Exam Head Exam: ATRAUMATIC, NORMAL INSPECTION, NORMOCEPHALIC - Eye Exam Eye Exam: EOMI, Normal appearance, PERRL Pupil Exam: NORMAL ACCOMODATION, PERRL - ENT Exam ENT Exam: Mucous Membranes Moist, Normal Exam - Neck Exam Neck Exam: Full ROM, Normal Inspection. absent: Lymphadenopathy - Respiratory Exam Respiratory Exam: Clear to Ausculation Bilateral, NORMAL BREATHING PATTERN - Cardiovascular Exam Cardiovascular Exam: REGULAR RHYTHM, +S1, +S2. absent: Murmur - GI/Abdominal Exam GI & Abdominal Exam: Soft, Normal Bowel Sounds. absent: Tenderness - Extremities Exam Extremities Exam: Full ROM, Normal Capillary Refill, Normal Inspection. absent : Joint Swelling, Pedal Edema - Back Exam Back Exam: Full ROM, NORMAL INSPECTION. absent: CVA tenderness (L), CVA tenderness (R) - Neurological Exam Neurological Exam: Alert, Awake, CN II-XII Intact, Normal Gait, Oriented x3 - Psychiatric Exam Psychiatric exam: Normal Affect, Normal Mood - Skin Skin Exam: Dry, Intact, Normal Color, Warm Assessment and Plan (1) Suicidal ideation Assessment & Plan: Depression Continue Treatment as per Psych recommendation Status: Acute (2) Headache Assessment & Plan: Continue Tylenol P Status: Chronic
--- NOTE | 2017-06-11 00:54 | CP.PCM.PN ---
Subjective - Date & Time of Evaluation Date of Evaluation: 06/10/17 Time of Evaluation: 15:25 - Subjective Subjective: No more complaint. Objective - Vital Signs/Intake and Output Vital Signs (last 24 hours): Temp Pulse Resp BP Pulse Ox 98.2 F 87 19 100/60 100 06/10/17 16:03 06/10/17 16:03 06/10/17 16:03 06/10/17 16:03 06/07/17 18:53 - Medications Medications: Current Medications Acetaminophen (Tylenol 325mg Tab) 650 mg PO Q4 PRN PRN Reason: for 4-7 pain Last Admin: 06/09/17 11:46 Dose: 650 mg Al Hydrox/Mg Hydrox/Simethicone (Maalox Plus 30 Ml) 30 ml PO Q4 PRN PRN Reason: Dyspepsia Diphenhydramine HCl (Benadryl) 50 mg IM Q6 PRN PRN Reason: Extrapyramidal S/S Unable PO Diphenhydramine HCl (Benadryl) 50 mg PO Q6 PRN PRN Reason: Extrapyramidal Symptoms Diphenhydramine HCl (Benadryl) 50 mg PO HS PRN PRN Reason: Sleep Last Admin: 06/07/17 23:19 Dose: 50 mg Duloxetine HCl (Cymbalta) 60 mg PO DAILY [facility] Last Admin: 06/10/17 08:22 Dose: 60 mg Haloperidol (Haldol) 5 mg PO Q4 PRN PRN Reason: Agitation Haloperidol Lactate (Haldol) 5 mg IM Q4 PRN PRN Reason: Agitation, Unable to Take PO [place] Carbonate ([place] Carbonate 300mg) 300 mg PO Q12 [facility] Last Admin: 06/10/17 21:04 Dose: 300 mg Lorazepam (Ativan) 2 mg IM Q4 PRN PRN Reason: Anxiety/Agitation,Unable PO Lorazepam (Ativan) 2 mg PO Q4 PRN PRN Reason: Anxiety/Agitation Magnesium Hydroxide (Milk Of Magnesia) 30 ml PO HS PRN PRN Reason: Constipation Multivitamins/Minerals (Therapeutic-M Tab) 1 tab PO DAILY [facility] Last Admin: 06/10/17 08:22 Dose: 1 tab Trazodone HCl (Desyrel) 50 mg PO HS PRN PRN Reason: Insomnia - Labs Labs: 06/07/17 16:27 06/07/17 16:27 - Constitutional Appears: Well - Head Exam Head Exam: ATRAUMATIC, NORMAL INSPECTION, NORMOCEPHALIC - Eye Exam Eye Exam: EOMI, Normal appearance, PERRL Pupil Exam: NORMAL ACCOMODATION, PERRL - ENT Exam ENT Exam: Mucous Membranes Moist, Normal Exam - Neck Exam Neck Exam: Full ROM, Normal Inspection. absent: Lymphadenopathy - Respiratory Exam Respiratory Exam: Clear to Ausculation Bilateral, NORMAL BREATHING PATTERN - Cardiovascular Exam Cardiovascular Exam: REGULAR RHYTHM, +S1, +S2. absent: Murmur - GI/Abdominal Exam GI & Abdominal Exam: Soft, Normal Bowel Sounds. absent: Tenderness - Extremities Exam Extremities Exam: Full ROM, Normal Capillary Refill, Normal Inspection. absent : Joint Swelling, Pedal Edema - Back Exam Back Exam: NORMAL INSPECTION - Neurological Exam Neurological Exam: Alert, Awake, CN II-XII Intact, Normal Gait, Oriented x3 - Psychiatric Exam Psychiatric exam: Normal Affect, Normal Mood - Skin Skin Exam: Dry, Intact, Normal Color, Warm Assessment and Plan (1) Depression Status: Acute (2) Headache Status: Resolved
[2017-06-11 05:58] VITALS: RESP 18
[2017-06-11] MEDS: Multivitamin With Minerals Tab PO SCH (08:38)
--- NOTE | 2017-06-11 12:58 | PCM.PYCHPN ---
Psychiatric Progress Note - Psychiatric Progress Note Patient seen today, length of contact: Patient evaluated, case discussed with team, chart reviewed Patient Chief Complaint: "I'm getting better." Problems Identified/Issues Discussed: Patient reports that his mood is improving. He has broader range of affect and he is more hopeful for the future. No current AH/VH/SI/HI/paranoia/delusions. We discussed discharge to home tomorrow and the importance of compliance with treatment and medications. Diagnostic Results: Li 0.3 on 06/11/17 Medication Change: No Medical Record Reviewed: Yes Consults ordered or reviewed: Medicine consult Mental Status Examination - Cognitive Function Orientation: Person, Place, Situation, Time Memory: Intact Attention: WNL Concentration: WNL Association: WNL Fund of Knowledge: [facility] Decription of patient's judgement and insights: Fair I/J - Mood Mood: Anxious - Affect Affect: Constricted - Formal Thought Process Formal Thought Process: No Impairment Psychotic Thoughts and Behaviors: Denies acute AH/VH/paranoia - Suicidal Ideation Suicidal Ideation: No - Homicidal Ideation Homicidal Ideation: No Goal/Treatment Plan - Goal/Treatment Plan Need for Continued Stay: Discharge may exacerbated symptoms Progress Toward Problem(s) and Goals/Treatment Plan: Schizoaffective Disorder; patient is improving clinically and will be discharged to home tomorrow w/ outpatient follow-up -Individual and group therapy -Psychoeducation -Continue [place] 300 mg PO Q12, Li 0.3 no 06/11/17 -Invega Sustenna 234 mg PO QMonthly given on 06/08/17 -Continue Cymbalta 60 mg PO Daily -SW discussed case w/ patient's parents -Disposition planning -Medicine consult Estimated Date of D/C: 06/12/17 - Smoking Cessation Smoking Cessation Initiated: No Reason for not providing: Not indicated
--- NOTE | 2017-06-12 00:12 | CP.PCM.PN ---
Subjective - Date & Time of Evaluation Date of Evaluation: 06/11/17 Time of Evaluation: 12:30 - Subjective Subjective: No More MARTINEZ. No Visual changes. Objective - Vital Signs/Intake and Output Vital Signs (last 24 hours): Temp Pulse Resp BP Pulse Ox 97.9 F 77 18 112/64 100 06/11/17 16:06 06/11/17 16:06 06/11/17 16:06 06/11/17 16:06 06/07/17 18:53 - Medications Medications: Current Medications Acetaminophen (Tylenol 325mg Tab) 650 mg PO Q4 PRN PRN Reason: for 4-7 pain Last Admin: 06/09/17 11:46 Dose: 650 mg Al Hydrox/Mg Hydrox/Simethicone (Maalox Plus 30 Ml) 30 ml PO Q4 PRN PRN Reason: Dyspepsia Diphenhydramine HCl (Benadryl) 50 mg IM Q6 PRN PRN Reason: Extrapyramidal S/S Unable PO Diphenhydramine HCl (Benadryl) 50 mg PO Q6 PRN PRN Reason: Extrapyramidal Symptoms Duloxetine HCl (Cymbalta) 60 mg PO DAILY [facility] Last Admin: 06/11/17 08:37 Dose: 60 mg [place] Carbonate ([place] Carbonate 300mg) 300 mg PO Q12 [facility] Last Admin: 06/11/17 21:07 Dose: 300 mg Lorazepam (Ativan) 2 mg IM Q4 PRN PRN Reason: Anxiety/Agitation,Unable PO Lorazepam (Ativan) 2 mg PO Q4 PRN PRN Reason: Anxiety/Agitation Magnesium Hydroxide (Milk Of Magnesia) 30 ml PO HS PRN PRN Reason: Constipation Multivitamins/Minerals (Therapeutic-M Tab) 1 tab PO DAILY [facility] Last Admin: 06/11/17 08:38 Dose: 1 tab - Labs Labs: 06/07/17 16:27 06/07/17 16:27 Assessment and Plan (1) Depression Assessment & Plan: Suicidal Ideation Status: Acute (2) Headache Status: Resolved
[2017-06-12 06:00] VITALS: BP 100/63; PULSE 63; TEMP 97.1
--- NOTE | 2017-06-12 07:24 | PCM.PYCHDC ---
Mental Status Examination - Mental Status Examination Orientation: Person, Place, Situation, Time Memory: Intact Mood: Neutral Affect: Broad Speech: Appropriate Attention: WNL Concentration: WNL Association: WNL Fund of Knowledge: WNL Formal Thought Process: No Impairment Description of patient's judgement and insight: Fair I/J Psychotic Thoughts and Behaviors: Denies acute AH/VH/paranoia Suicidal Ideation: No Current Homicidal Ideation?: No Discharge Summary - Discharge Note Reason for Hospitalization: HPI: 37 yo male w/ h/o schizoaffective disorder, presents with worsening depression and intermittent suicidal ideation. Patient reports that he was acutely suicidal Wednesday night, w/ plan to overdose on his pills. He denies active suicidal ideation/plan/intent and is able to contract for safety on the unit. He reports that he did not take his [place] for a few days. He also reports feeling like he is having strange thoughts and that his mind is playing tricks on him. On admission he reported passive ideations that he would not be alive anymore. He denies AH/VH. He denies acute paranoia, but seems guarded w / publicity writer. +Sleep/appetite disturbances. +Feeling helpless/ hopeless. PPHx: H/o multiple past hospitalizations, including to [facility], [facility]. He is currently being treatment at the partial program w/ Invega Sustenna (last given May 05, 156 mg; patient missed next injection), [place] and Cymbalta. PMHx: Denies acute medical issues ALL: NKDA SHx: On SSD, used to be in the [place]; lives w/ his family; no drugs/etoh/cig Laboratory Data: Abnormal Lab Results 06/11/17 07:24 [place] 0.3 L Consultations:: List each consultation separately and include: 1. Reason for request. 2. Findings. 3. Follow-up Consultations: Medicine consult Summary of Hospital Course include:: 1. Description of specific treatment plan utilized for patients during their course of treatmen. 2. Summarize the time- course for resolution of acute symptoms and/or regressed behaviors. 3. Describe issues identified and worked on during hospitalization. 4. Describe medication utilized. 5. Describe medical problems identified and treated. 6. Reassessment of suicide risk Summary of Hospital Course: Patient was admitted to the psychiatry unit. Individual and group therapy were provided. Patient was stabilized on Cymbalta 60 mg PO Daily, [place] 300 mg PO BID and Invega Sustenna 234 mg IM QMonthly. He reports improvement in mood and is currently psychiatrically stable for discharge. No current psychotic symptoms or suicidal ideation/plan/intent. Psychoeducation provided re: importance of compliance with treatment and medications. - Diagnosis (1) Schizoaffective disorder Current Visit: Yes Status: Chronic - Final Diagnosis (DSM 5) Condition upon Discharge: STABLE DSM 5: Schizoaffective Disorder Disposition: HOME/ ROUTINE Follow-up Treatment Plan: Schizoaffective Disorder; patient is psychiatrically stable for discharge. -Continue [place] 300 mg PO Q12, Li 0.3 no 06/11/17 -Continue Invega Sustenna 234 mg PO QMonthly given on 06/08/17 -Continue Cymbalta 60 mg PO Daily Prescriptions/Medication Reconciliation: DULoxetine [Cymbalta] 60 mg PO DAILY #30 ecc [place] Carbonate [[place] Carbonate 300MG] 300 mg PO Q12 #60 cap - Smoking Cessation Smoking Cessation Medication prescribed: No Reason for not providing: Not indicated - Antipsychotic Medications Pt discharged on 2 or more routine antipsychotic medications: No
[2017-06-12] MEDS: Multivitamin With Minerals Tab PO SCH (08:18)
== END 2017-06-12 11:00 | disposition home or self-care (01) | DRG 885 ==
LOC: H.ER 15:27 → H.ERHOLD 18:15 → H.STEP 19:31
PROVIDERS: ADMIT Psychiatry & Neurology Psychiatry; ATTEND Psychiatry & Neurology Psychiatry
PROC: GZHZZZZ Group Psychotherapy (ICD-10-PCS; principal; 2017-06-09)
PROC: GZ51ZZZ Individual Psychotherapy, Behavioral (ICD-10-PCS; 2017-06-09)
DX: F25.9 Schizoaffective disorder, unspecified (principal); R45.851 Suicidal ideations; F31.9 Bipolar disorder, unspecified; R51 Headache

== ENCOUNTER 2017-06-20 16:42 | Inpatient (IN) | payer OTHER, MEDICAID ==
[2017-06-20 17:00] VITALS: O2SAT 99
--- NOTE | 2017-06-20 17:34 | ED PDOC ---
HPI: Psych/Substance Abuse Time Seen by Provider: 06/20/17 17:22 Chief Complaint (Nursing): Psychiatric Evaluation History Per: Patient History/Exam Limitations: no limitations Onset/Duration Of Symptoms: Mins Current Symptoms Are (Timing): Still Present Suicide/Self Injury Attempted (Context): None Modifying Factor(s): None Associated Symptoms: Suicidal Thoughts, Suicidal Plan Involuntary Hold By: None Additional Complaint(s): 37 y/o male, whose PMH includes depression (on Cymbalta), presents to the ED complaining of suicidal ideation with plan since prior to arrival. Patient reports he planned to overdose on his medication but decided to stop and come to the ED instead. He notes having suicidal ideation for the way "his life turned out". Patient denies any homicidal ideation, chest pain, shortness of breath, headaches, vomiting, or other complaints. Past Medical History Reviewed: Historical Data, Nursing Documentation, Vital Signs Vital Signs: Last Vital Signs Temp 97.8 F 06/20/17 16:56 Pulse 96 H 06/20/17 16:56 Resp 20 06/20/17 16:56 BP 108/65 06/20/17 16:56 Pulse Ox 99 06/20/17 16:56 - Medical History PMH: Bipolar Disorder, Depression, Schizophrenia Denies: Diabetes, Hepatitis, HIV, HTN, Seizures, Sexually Transmitted Disease - Family History Family History: States: Unknown Family Hx - Home Medications Home Medications: Ambulatory Orders Medication Instructions Recorded Multivitamin [Multi-Vitamin Daily] 1 tab PO DAILY 06/07/17 DULoxetine [Cymbalta] 60 mg PO DAILY #30 ecc 06/10/17 [place] Carbonate [[place] 300 mg PO Q12 #60 cap 06/10/17 Carbonate 300MG] - Allergies Allergies/Adverse Reactions: Allergies Allergy/AdvReac Type Severity Reaction Status Date / Time No Known Allergies Allergy Verified 06/02/17 12:43 Review of Systems ROS Statement: Except As Marked, All Systems Reviewed And Found Negative Cardiovascular: Negative for: Chest Pain Respiratory: Negative for: Shortness of Breath Psych: Positive for: Depression, Suicidal ideation Physical Exam - Reviewed Nursing Documentation Reviewed: Yes Vital Signs Reviewed: Yes - Physical Exam Appears: Positive for: Well, Non-toxic, No Acute Distress Head Exam: Positive for: ATRAUMATIC, NORMAL INSPECTION, NORMOCEPHALIC Skin: Positive for: Normal Color, Warm, DRY Eye Exam: Positive for: EOMI, Normal appearance, PERRL Cardiovascular/Chest: Positive for: Regular Rate, Rhythm Respiratory: Positive for: Normal Breath Sounds. Negative for: Crackles, Rales , Rhonchi, Wheezing Neurologic/Psych: Positive for: Alert, window dresser II-XII, Oriented, Other (currently calm ) - Laboratory Results Result Diagrams: 06/20/17 20:30 06/20/17 20:30 - ECG O2 Sat by Pulse Oximetry: 99 (room air) Pulse Ox Interpretation: Normal - Progress ED Course And Treament: seen by crisis team. Admitted to Dr. Baxter Diagnosis schizoaffective disorder Medical Decision Making Medical Decision Making: Plans: -- Disposition Scribe Attestation: Giovanna Johnson MD Scribe Attestation: All medical record entries made by the Scribe were at my direction and personally dictated by me. I have reviewed the chart and agree that the record accurately reflects my personal performance of the history, physical exam, medical decision making, and the department course for this patient. I have also personally directed, reviewed, and agree with the discharge instructions and disposition. Disposition - Clinical Impression Clinical Impression: Schizoaffective disorder - Patient ED Disposition Is Patient to be Admitted: Yes - Disposition Disposition Time: 20:43 Condition: FAIR - Pt Status Changed To: Hospital Disposition Of: Inpatient - Admit Certification Admit to Inpatient:: After my assessment, the patient will require hospitalization for at least two midnights. This is because of the severity of symptoms shown, intensity of services needed, and/or the medical risk in this patient being treated as an outpatient.
[2017-06-20 20:41] LABS: BASO % 0.4 % (0.0-2.0); EOS # 0.2 K/uL (0.0-0.7); EOS % 2.2 % (0.0-4.0); HEMOGLOBIN 13.2 g/dL (12.0-18.0); LYMPH # 2.1 K/uL (1.0-4.3); LYMPH % 21.5 % (20.0-40.0); MEAN CELL VOLUME 78.1 fl (80.0-94.0); MEAN CORPUSCULAR HEMOGLOBIN 25.1 pg (27.0-31.0); MEAN CORPUSCULAR HGB CONC 32.1 g/dL (33.0-37.0); MEAN PLATELET VOLUME 9.2 fl (7.2-11.7); MONO # 0.8 K/uL (0.0-0.8); MONO % 8.3 % (0.0-10.0); NEUT # 6.5 K/uL (1.8-7.0); NEUT % 67.6 % (50.0-75.0); NRBC % 1.4 % (0.0-0.0); RBC 5.27 Mil/uL (4.40-5.90); RED CELL DISTRIBUTION WIDTH 14.9 % (11.5-14.5); WHITE BLOOD COUNT 9.6 K/uL (4.8-10.8)
[2017-06-20 20:56] LABS: BARBITURATES, UR NEGATIVE (NEGATIVE); BENZODIAZEPINES, UR NEGATIVE (NEGATIVE); OPIATES, UR NEGATIVE (NEGATIVE); PHENCYCLIDINE, UR NEGATIVE (NEGATIVE)
[2017-06-20 20:59] LABS: ALB/GLOB RATIO 1.1 (1.0-2.1); ALBUMIN 3.9 g/dL (3.5-5.0); ALT/SGPT 29 U/L (21-72); AST/SGOT 23 U/L (17-59); BLOOD UREA NITROGEN 15 mg/dl (9-20); CALCIUM 9.3 mg/dL (8.4-10.2); GFR AFRICAN-AMERICAN > 60; GFR NON-AFRICAN AMERICAN > 60
[2017-06-20 21:28] LABS: URINE AMORPHOUS SEDIMENT RARE /ul (<OCC); URINE BILIRUBIN NEGATIVE (NEGATIVE); URINE BLOOD NEGATIVE (NEGATIVE); URINE CLARITY SLIGHTY-CLOUDY (Clear); URINE COLOR YELLOW (YELLOW); URINE GLUCOSE (UA) NEG (Normal); URINE LEUKOCYTE ESTERASE NEG Leu/uL (Negative); URINE PROTEIN NEGATIVE (NEGATIVE)
[2017-06-20] MEDS ORDERED: DiphenhydrAMINE 50 mg/ml Inj IM PRN (22:40)
[2017-06-20] MEDS ORDERED: Magnesium Hydroxide Susp 30 ml UD PO PRN (22:40)
--- NOTE | 2017-06-20 23:09 | PCM.BM ---
<Dillon Mackenzie H - Last Filed: 06/20/17 23:08> Treatment assets and liabiliti Patient Assests: adapts well, cooperative, motivated, resourceful, physically healthy, negotiates basic needs, cognitively intact Patient Liabilities: poor support system, other - Milieu Protocol Maintain good personal hygiene: daily Remind patient to perform daily oral care , daily Assist patient to perform ADL's, every other day Encourage regular showers Maintain personal safety: every shift Educate patient to report safety concerns to staff, every shift Monitor environment for contraband/sharps Medication safety: Monitor for expected outcome, potential side effects: every shift, Assess barriers to learning: every shift, Assess readiness for medication education: every shift <Addison Lomas J - Last Filed: 06/23/17 11:11> Family Contact Family involvement: Family/SO is involved Family contact: Patient agrees to contact, Family has been contacted by patient , Telephone contact initiated by staff Family contact name: Jodie Molina - Mother, Family contacted how many times per week?: 3 Family contact comment: Radio Communication Coordinator spoke with pt's mother to inform her of medication changes and his progress on unit. Radio Communication Coordinator informed pt's mother that plan is to discharge pt on 06/24 and have him return to [facility]. Pt's mother offered no complaints at this time, but asked that pt call her prior to discharge. - Goals for Treatment Patient goals for treatment: Pt reported he would like his medications to be alterned, so he does not feel as lethargic.Pt offered no other complaints or goals at this time. Patient's family/SO goals for treatment: Pt's mother offered no goals when contacted by staff. Discharge/Continuing Care - Education Needs Education Needs: Family Medication, Family Diagnosis/Disease Process, Family Coping Skills, Family Placement options, Family Aftercare Safety Plan, Patient Medication, Patient Diagnosis/Disease Process, Patient Coping Skills, Patient Placement options, Patient Aftercare Safety Plan - Discharge Discharge Criteria: Tolerates medication w/o severe side effects, Free of Suicidal thoughts, Normal sleep pattern, Ability to care for self, Reduction of target symptoms Discharge to:: Home, With Family - Additional Comments 06/23/17 11:15 Pt only verbalized being placed on medication that works better for his symptoms at this time. Discharge on 06/24 and return to [facility] on 06/25 was discussed and pt offered no questions or concerns at this time. - Treatment Team Participation Discussed with Family/SO: Yes Was Patient/Family/SO present at Treatment Team Meeting: Yes <Roger Brown - Last Filed: 06/24/17 09:53> - Diagnosis (1) Depression Status: Acute Interventions: psychotherapy, pharmacotherapy 06/24/17 09:53
[2017-06-21 08:48] LABS: T4 6.91 ug/dl (5.5-11.0)
--- NOTE | 2017-06-21 08:50 | CARD ---
APPROVED REPORT EKG Measurement Heart [id number] <Conclusion> Normal sinus rhythm Possible Left atrial enlargement Borderline ECG
[2017-06-21 09:02] LABS: T3 1.04 nmol/L (1.49-2.60)
--- NOTE | 2017-06-21 16:17 | PCM.PSYCH ---
Initial Psychiatric Evaluation - Initial Psychiatric Evaluation Type of Admission: Voluntary Legal Status: Capacity Chief Complaint (in patient's own words): I am depressed and have no motivation Patient's Reaction to Hospitalization: pt requested help History of Present Illness and Precipitating Events: t is a 37 y/o male presenting in the ER with complaints of depression and recent SI. Pt has a hx of Schizoaffective Disorder. Pt reports that while at home he was experiencing suicidal thoughts to overdose on his lithium medication. pt has been recently discharged from the psychiatric unit stated that since then he only went to the partial program for few days reported feeling increasingly sedated with poor motivation, low energy, hopeless and helpless pt reported passive suicidal ideations on the unit, with no plan or intent Current Medications: Active Medications Generic Name Dose Route Start Last Admin Trade Name Freq PRN Reason Stop Dose Admin Acetaminophen 650 mg 06/20/17 22:40 Tylenol 325mg Tab PO Q4 PRN T>101,Pain 1-7,headache Diphenhydramine HCl 50 mg 06/20/17 22:40 Benadryl IM Q6 PRN Extrapyramidal S/S Unable PO Diphenhydramine HCl 50 mg 06/20/17 22:40 Benadryl PO Q6 PRN Extrapyramidal Symptoms Diphenhydramine HCl 50 mg 06/20/17 22:46 06/20/17 23:30 Benadryl PO 50 mg HS PRN Administration Sleep Haloperidol 5 mg 06/20/17 22:40 Haldol PO Q4 PRN Agitation Haloperidol Lactate 5 mg 06/20/17 22:40 Haldol IM Q4 PRN Agitation, Unable to Take PO Lamotrigine 25 mg 06/22/17 09:00 Lamictal PO DAILY [place] Lorazepam 2 mg 06/20/17 22:40 Ativan IM Q4 PRN Anxiety/Agitation,Unable PO Lorazepam 2 mg 06/20/17 22:40 Ativan PO Q4 PRN Anxiety/Agitation Magnesium Hydroxide 30 ml 06/20/17 22:40 Milk Of Magnesia PO HS PRN Constipation Venlafaxine HCl 37.5 mg 06/21/17 17:00 Effexor PO BID [place] Past Psychiatric History - Past Psychiatric History Explanation of prior treatment: multiple inpatient hospitalizations Pertinent Medical Hx (Current Medical&Sleep Prob, Allergies): Allergies Allergy/AdvReac Type Severity Reaction Status Date / Time No Known Allergies Allergy Verified 06/02/17 12:43 Multivitamin [Multi-Vitamin Daily] 1 tab PO DAILY 06/07/17 DULoxetine [Cymbalta] 60 mg PO DAILY #30 ecc 06/10/17 [place] Carbonate [[place] Carbonate 300MG] 300 mg PO Q12 #60 cap 06/10/17 Mental Status Examination - Personal Presentation Personal Presentation: Looks stated age - Affect Affect: Constricted, Depressed - Motor Activity Motor Activity: Psychomotor Retardation - Reliability in Providing Information Reliability in Providing Information: Poor, due to alteration in thoughts, Poor , due to altered mood - Mood Mood: Depressed, Anxious - Formal Thought Process Formal Thought Process: Circumstantial - Hallucinations/Delusions Additional comments: pt denied any current perceptual disturbances non elicited - Obsessions/Compulsions Obsessions: No Compulsions: No - Cognitive Functions Orientation: Person, Place Judgement: Imparied, as evidence by: Poor judgement, Imparied, as evidence by: Lack of insight into illness - Risk Risk: Diminished functioning - Strength & Assets Inventory Strength & Assets Inventory: Family support, Life experience - Limitations Additional comments: partial compliance DSM 5 DX - DSM 5 DSM 5 Diagnosis: schizoaffective disorder depressed - Recommended/Plan of Treatment Treatment Recommendations and Plan of Treatment: pt currently on invega sustenna last dose one week ago will replace cymbalta with effexor 37.5mg bid for less sedation discontinue lithium for possible sedation and suicidal risk start lamotrigine for depression and mood stabilization 25mg daily and uptitrate gradually monitor pt for any rash group and supportive therapy
--- NOTE | 2017-06-22 02:01 | CP.PCM.HP ---
Past Patient History - Past Medical History & Family History Past Medical History?: No - Past Social History Smoking Status: Never Smoked - CARDIAC Hx Cardiac Disorders: No Hx Hypertension: No - PULMONARY Hx Respiratory Disorders: No Hx Tuberculosis: No - NEUROLOGICAL Hx Neurological Disorder: No Hx Seizures: No - HEENT Hx HEENT Problems: No Other/Comment: wears glasses - RENAL Hx Chronic Kidney Disease: No - ENDOCRINE/METABOLIC Hx Endocrine Disorders: No - HEMATOLOGICAL/ONCOLOGICAL Hx Blood Disorders: No Hx Human Immunodeficiency Virus (HIV): No - INTEGUMENTARY Hx Dermatological Problems: No - MUSCULOSKELETAL/RHEUMATOLOGICAL Hx Musculoskeletal Disorders: No - GASTROINTESTINAL Hx Gastrointestinal Disorders: No - GENITOURINARY/GYNECOLOGICAL Hx Genitourinary Disorders: No Hx Sexually Transmitted Disorders: No - PSYCHIATRIC Hx Bipolar Disorder: Yes Hx Schizophrenia: Yes Hx Substance Use: No - SURGICAL HISTORY Hx Surgeries: No - ANESTHESIA Hx Anesthesia: No Meds Allergies/Adverse Reactions: Allergies Allergy/AdvReac Type Severity Reaction Status Date / Time No Known Allergies Allergy Verified 06/02/17 12:43 Results - Vital Signs Recent Vital Signs: Last Vital Signs Temp 97.6 F 06/21/17 16:08 Pulse 83 06/21/17 16:08 Resp 18 06/21/17 16:08 BP 123/76 06/21/17 16:08 Pulse Ox 99 06/20/17 22:04 - Labs Result Diagrams: 06/20/17 20:30 06/20/17 20:30 Labs: Laboratory Results - last 24 hr 06/21/17 06/21/17 06/21/17 08:07 08:07 08:07 Hemoglobin A1c 5.2 Triglycerides 84 Cholesterol 201 H LDL Cholesterol Direct 124 HDL Cholesterol 47 Thyroxine (T4) 6.91 Total T3 1.04 L TSH 3rd Generation 1.32 [place] RPR Nonreactive 06/21/17 08:07 Hemoglobin A1c Triglycerides Cholesterol LDL Cholesterol Direct HDL Cholesterol Thyroxine (T4) Total T3 TSH 3rd Generation [place] < 0.2 L RPR
--- NOTE | 2017-06-22 16:24 | PCM.PYCHPN ---
Psychiatric Progress Note - Psychiatric Progress Note Patient seen today, length of contact: pt evaluated discussed with team chart reviewed Patient Chief Complaint: I am less depressed Problems Identified/Issues Discussed: pt evaluiated , seen on the unit, reported feeling less depressed, affect brighter, denied ay current rash or side effects of medication, compliant wit treatment and attending groups denied any current suicidal or homicidal ideations, denied perceptual disturbances Medical Problems: multiple inpatient hospitalizations DSM 5 Symptoms Update: schizoaffective disorder Medication Change: No Medical Record Reviewed: Yes Mental Status Examination - Cognitive Function Orientation: Person, Place Attention: WNL Concentration: WNL Association: WNL Fund of Knowledge: Poor Decription of patient's judgement and insights: partial insight and poor judgment - Mood Mood: Depressed, Anxious - Affect Affect: Constricted, Depressed - Speech Speech: Appropriate - Formal Thought Process Formal Thought Process: Circumstantial Psychotic Thoughts and Behaviors: pt denied any current perceptual disturbances, non elicited - Suicidal Ideation Suicidal Ideation: No - Homicidal Ideation Homicidal Ideation: No Goal/Treatment Plan - Goal/Treatment Plan Need for Continued Stay: Severe depression anxiety, Discharge may exacerbated symptoms Progress Toward Problem(s) and Goals/Treatment Plan: pt currently on invega sustenna last dose one week ago effexor 37.5mg bid lamotrigine 25 mg monitor pt for any rash group and supportive therapy
[2017-06-23] MEDS: Bacitracin OINT 15GM TOP SCH ×2 (13:05→17:39)
--- NOTE | 2017-06-23 13:22 | PCM.PYCHPN ---
Psychiatric Progress Note - Psychiatric Progress Note Patient seen today, length of contact: pt evaluated discussed with team chart reviewed Patient Chief Complaint: I know I need to fix the relation with my brother Problems Identified/Issues Discussed: pt evaluated , seen with treatment team , reported feeling less depressed, affect brighter, denied ay current rash or side effects of medication, compliant wit treatment and attending groups, discussed with pt gradual increase in dose of lamotrigine denied any current suicidal or homicidal ideations, denied perceptual disturbances Medical Problems: multiple inpatient hospitalizations DSM 5 Symptoms Update: schizoaffective disorder Medication Change: Yes (increase lamictal) Medical Record Reviewed: Yes Mental Status Examination - Cognitive Function Orientation: Person, Place Attention: WNL Concentration: WNL Association: WNL Fund of Knowledge: Poor Decription of patient's judgement and insights: partial insight and poor judgment - Mood Mood: Depressed, Anxious - Affect Affect: Constricted, Depressed - Speech Speech: Appropriate - Formal Thought Process Formal Thought Process: Circumstantial Psychotic Thoughts and Behaviors: pt denied any current perceptual disturbances, non elicited - Suicidal Ideation Suicidal Ideation: No - Homicidal Ideation Homicidal Ideation: No Goal/Treatment Plan - Goal/Treatment Plan Need for Continued Stay: Severe depression anxiety, Discharge may exacerbated symptoms Progress Toward Problem(s) and Goals/Treatment Plan: pt currently on invega sustenna last dose one week ago effexor 37.5mg bid lamotrigine 25 mg bid monitor pt for any rash group and supportive therapy
[2017-06-23 16:46] VITALS: RESP 18
--- NOTE | 2017-06-23 18:24 | CP.PCM.PN ---
Subjective - Date & Time of Evaluation Date of Evaluation: 06/23/17 Time of Evaluation: 20:15 Objective - Vital Signs/Intake and Output Vital Signs (last 24 hours): Temp Pulse Resp BP Pulse Ox 97.9 F 87 18 104/63 99 06/23/17 16:45 06/23/17 16:45 06/23/17 16:45 06/23/17 16:45 06/20/17 22:04 - Medications Medications: Current Medications Acetaminophen (Tylenol 325mg Tab) 650 mg PO Q4 PRN PRN Reason: T>101,Pain 1-7,headache Bacitracin (Bacitracin Oint) 1 applic TOP BID [facility] Last Admin: 06/23/17 17:39 Dose: 1 applic Clotrimazole (Lotrimin 1% Cream) 1 applic TOP BID [facility] Diphenhydramine HCl (Benadryl) 50 mg IM Q6 PRN PRN Reason: Extrapyramidal S/S Unable PO Diphenhydramine HCl (Benadryl) 50 mg PO Q6 PRN PRN Reason: Extrapyramidal Symptoms Diphenhydramine HCl (Benadryl) 50 mg PO HS PRN PRN Reason: Sleep Last Admin: 06/21/17 21:15 Dose: 50 mg Haloperidol (Haldol) 5 mg PO Q4 PRN PRN Reason: Agitation Haloperidol Lactate (Haldol) 5 mg IM Q4 PRN PRN Reason: Agitation, Unable to Take PO Hydrocortisone (Cortizone 1% Cream) 1 applic TOP BID [facility] Last Admin: 06/23/17 17:38 Dose: 1 u Lamotrigine (Lamictal) 25 mg PO BID [facility] Last Admin: 06/23/17 17:41 Dose: 25 mg Lorazepam (Ativan) 2 mg IM Q4 PRN PRN Reason: Anxiety/Agitation,Unable PO Lorazepam (Ativan) 2 mg PO Q4 PRN PRN Reason: Anxiety/Agitation Magnesium Hydroxide (Milk Of Magnesia) 30 ml PO HS PRN PRN Reason: Constipation Venlafaxine HCl (Effexor) 37.5 mg PO BID [facility] Last Admin: 06/23/17 17:37 Dose: 37.5 mg - Labs Labs: 06/20/17 20:30 06/20/17 20:30
--- NOTE | 2017-06-23 18:24 | CP.PCM.PN ---
Subjective - Date & Time of Evaluation Date of Evaluation: 06/22/17 Time of Evaluation: 19:10 Objective - Vital Signs/Intake and Output Vital Signs (last 24 hours): Temp Pulse Resp BP Pulse Ox 97.9 F 87 18 104/63 99 06/23/17 16:45 06/23/17 16:45 06/23/17 16:45 06/23/17 16:45 06/20/17 22:04 - Medications Medications: Current Medications Acetaminophen (Tylenol 325mg Tab) 650 mg PO Q4 PRN PRN Reason: T>101,Pain 1-7,headache Bacitracin (Bacitracin Oint) 1 applic TOP BID [facility] Last Admin: 06/23/17 17:39 Dose: 1 applic Clotrimazole (Lotrimin 1% Cream) 1 applic TOP BID [facility] Diphenhydramine HCl (Benadryl) 50 mg IM Q6 PRN PRN Reason: Extrapyramidal S/S Unable PO Diphenhydramine HCl (Benadryl) 50 mg PO Q6 PRN PRN Reason: Extrapyramidal Symptoms Diphenhydramine HCl (Benadryl) 50 mg PO HS PRN PRN Reason: Sleep Last Admin: 06/21/17 21:15 Dose: 50 mg Haloperidol (Haldol) 5 mg PO Q4 PRN PRN Reason: Agitation Haloperidol Lactate (Haldol) 5 mg IM Q4 PRN PRN Reason: Agitation, Unable to Take PO Hydrocortisone (Cortizone 1% Cream) 1 applic TOP BID [facility] Last Admin: 06/23/17 17:38 Dose: 1 u Lamotrigine (Lamictal) 25 mg PO BID [facility] Last Admin: 06/23/17 17:41 Dose: 25 mg Lorazepam (Ativan) 2 mg IM Q4 PRN PRN Reason: Anxiety/Agitation,Unable PO Lorazepam (Ativan) 2 mg PO Q4 PRN PRN Reason: Anxiety/Agitation Magnesium Hydroxide (Milk Of Magnesia) 30 ml PO HS PRN PRN Reason: Constipation Venlafaxine HCl (Effexor) 37.5 mg PO BID [facility] Last Admin: 06/23/17 17:37 Dose: 37.5 mg - Labs Labs: 06/20/17 20:30 06/20/17 20:30
[2017-06-24 09:19] VITALS: BP 100/64; PULSE 78; TEMP 96.9
[2017-06-24] MEDS: Bacitracin OINT 15GM TOP SCH (09:52)
--- NOTE | 2017-06-24 11:29 | PCM.PYCHDC ---
Mental Status Examination - Mental Status Examination Orientation: Person, Place, Situation Memory: Intact Mood: Neutral Affect: Broad Speech: Appropriate Attention: WNL Concentration: WNL Association: WNL Fund of Knowledge: WNL Formal Thought Process: Circumstantial Description of patient's judgement and insight: partial insight and poor judgment Psychotic Thoughts and Behaviors: pt denied any current perceptual disturbances, non elicited Suicidal Ideation: No Current Homicidal Ideation?: No Discharge Summary - Discharge Note Reason for Hospitalization: pt requested help Consultations:: List each consultation separately and include: 1. Reason for request. 2. Findings. 3. Follow-up Summary of Hospital Course include:: 1. Description of specific treatment plan utilized for patients during their course of treatmen. 2. Summarize the time- course for resolution of acute symptoms and/or regressed behaviors. 3. Describe issues identified and worked on during hospitalization. 4. Describe medication utilized. 5. Describe medical problems identified and treated. 6. Reassessment of suicide risk Summary of Hospital Course: pt on admission , lithium was discontinued , pt was started on lamotrigine for depression and mood stabiliztion, it was increased to 50mg daily, no reported side effets and no rash , pt was educated about the possible side effects and the need to stop lamictal and to report to ER in case of any rage duloxerine was cross titrated with effexor for less sedating effect, dose was uptitrated to 37.5mg bid pt to be continued on iNVEGA IM pt gradually presented with brighter mood and affect on discharge, pt denied any suicidal or homicidal ideations, denied perceptual disturbances follow up arranged by director social service, for pt to continue with [facility] - Diagnosis (1) Depression Current Visit: No Status: Acute - Final Diagnosis (DSM 5) Condition upon Discharge: FAIR DSM 5: schizoaffective disorder depressed Disposition: HOME/ ROUTINE Follow-up Treatment Plan: [facility] program Prescriptions/Medication Reconciliation: Bacitracin OINT 1 applic TOP BID 7 Days #1 tube Clotrimazole 1% Cream [Lotrimin 1% CREAM] 1 applic TOP BID 7 Days #1 tube lamoTRIgine [Lamictal] 25 mg PO BID 30 Days #60 tab Venlafaxine [Effexor] 37.5 mg PO BID 30 Days #60 tab - Antipsychotic Medications Pt discharged on 2 or more routine antipsychotic medications: No
== END 2017-06-24 11:44 | disposition home or self-care (01) | DRG 885 ==
LOC: H.ER 16:42 → H.ERHOLD 20:43 → H.PSYCH 22:03 → H.STEP 22:20 → H.PSYCH 22:22
PROVIDERS: ADMIT Psychiatry & Neurology Psychiatry; ATTEND Psychiatry & Neurology Psychiatry
PROC: GZHZZZZ Group Psychotherapy (ICD-10-PCS; principal; 2017-06-20)
PROC: GZ56ZZZ Individual Psychotherapy, Supportive (ICD-10-PCS; 2017-06-20)
DX: F25.1 Schizoaffective disorder, depressive type (principal); R45.851 Suicidal ideations

== ENCOUNTER 2017-07-13 15:09 | Emergency (ER) | payer OTHER ==
[2017-07-13 15:31] VITALS: BP 108/69; PULSE 90; RESP 18; TEMP 98.7; O2SAT 100
[2017-07-13 17:57] LABS: HEMOGLOBIN 13.8 g/dL (12.0-18.0); MEAN CELL VOLUME 78.1 fl (80.0-94.0); MEAN CORPUSCULAR HEMOGLOBIN 25.1 pg (27.0-31.0); MEAN CORPUSCULAR HGB CONC 32.2 g/dL (33.0-37.0); RBC 5.5 Mil/uL (4.40-5.90); RED CELL DISTRIBUTION WIDTH 14.6 % (11.5-14.5); WHITE BLOOD COUNT 9.2 K/uL (4.8-10.8)
[2017-07-13 18:07] LABS: ALB/GLOB RATIO 1.1 (1.0-2.1); ALBUMIN 4.1 g/dL (3.5-5.0); ALT/SGPT 31 U/L (21-72); AST/SGOT 21 U/L (17-59); BLOOD UREA NITROGEN 16 mg/dl (9-20); CALCIUM 9.5 mg/dL (8.4-10.2); GFR AFRICAN-AMERICAN > 60; GFR NON-AFRICAN AMERICAN > 60
[2017-07-13 18:13] LABS: URINE BILIRUBIN NEGATIVE (NEGATIVE); URINE BLOOD NEGATIVE (NEGATIVE); URINE CLARITY SLIGHTY-CLOUDY (Clear); URINE COLOR YELLOW (YELLOW); URINE GLUCOSE (UA) NEG (Normal); URINE LEUKOCYTE ESTERASE NEG Leu/uL (Negative); URINE PROTEIN NEGATIVE (NEGATIVE); URINE UROBILINOGEN 0.2-1.0 mg/dL (0.2-1.0)
[2017-07-13 18:32] LABS: BARBITURATES, UR NEGATIVE (NEGATIVE); BENZODIAZEPINES, UR NEGATIVE (NEGATIVE); OPIATES, UR NEGATIVE (NEGATIVE); PHENCYCLIDINE, UR NEGATIVE (NEGATIVE)
--- NOTE | 2017-07-13 19:41 | ED PDOC ---
HPI: Psych/Substance Abuse Time Seen by Provider: 07/13/17 15:59 Chief Complaint (Nursing): Psychiatric Evaluation Chief Complaint (Provider): SI - Hx depression, no longer taking medications History Per: Patient History/Exam Limitations: no limitations Onset/Duration Of Symptoms: Days Current Symptoms Are (Timing): Still Present Additional Complaint(s): 37 yo male with history of depression reports SI today. PT states he has been having depression for a long time and has not been taking his medications because, they don't work. No fever/chills. 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 Past Medical History Reviewed: Historical Data, Nursing Documentation, Vital Signs Vital Signs: Last Vital Signs Temp 98.7 F 07/13/17 15:29 Pulse 90 07/13/17 15:29 Resp 18 07/13/17 15:29 BP 108/69 07/13/17 15:29 Pulse Ox 100 07/13/17 15:29 - Medical History PMH: Bipolar Disorder, Depression, Schizophrenia Denies: Diabetes, Hepatitis, HIV, HTN, Chronic Kidney Disease, Seizures, Sexually Transmitted Disease - Family History Family History: States: Unknown Family Hx - Home Medications Home Medications: Ambulatory Orders Medication Instructions Recorded Multivitamin [Multi-Vitamin Daily] 1 tab PO DAILY 06/07/17 Bacitracin OINT 1 applic TOP BID 7 Days #1 tube 06/24/17 Clotrimazole 1% Cream [Lotrimin 1% 1 applic TOP BID 7 Days #1 tube 06/24/17 CREAM] Venlafaxine [Effexor] 37.5 mg PO BID 30 Days #60 tab 06/24/17 lamoTRIgine [Lamictal] 25 mg PO BID 30 Days #60 tab 06/24/17 - Allergies Allergies/Adverse Reactions: Allergies Allergy/AdvReac Type Severity Reaction Status Date / Time No Known Allergies Allergy Verified 06/02/17 12:43 Physical Exam - Reviewed Nursing Documentation Reviewed: Yes Vital Signs Reviewed: Yes - Physical Exam Appears: Positive for: Well, Non-toxic, No Acute Distress Head Exam: Positive for: ATRAUMATIC, NORMAL INSPECTION, NORMOCEPHALIC Skin: Positive for: Normal Color, Warm, DRY Eye Exam: Positive for: Normal appearance ENT: Positive for: Normal ENT Inspection Neck: Positive for: Normal, Painless ROM Cardiovascular/Chest: Positive for: Regular Rate, Rhythm Respiratory: Positive for: CNT, Normal Breath Sounds Gastrointestinal/Abdominal: Positive for: Normal Exam, Soft Back: Positive for: Normal Inspection Extremity: Positive for: Normal ROM Neurologic/Psych: Positive for: Alert, Oriented - Laboratory Results Result Diagrams: 07/13/17 17:48 07/13/17 17:48 - ECG O2 Sat by Pulse Oximetry: 100 Disposition - Clinical Impression Clinical Impression: Schizoaffective disorder - Patient ED Disposition Is Patient to be Admitted: No Counseled Patient/Family Regarding: Diagnosis, Need For Followup - Disposition Disposition: Routine/Home Disposition Time: 19:41 Condition: STABLE Instructions: Schizoaffective Disorder (DC)
--- NOTE | 2017-07-14 09:17 | CARD ---
APPROVED REPORT EKG Measurement Heart [id number] <Conclusion> Normal sinus rhythm Possible Left atrial enlargement Borderline ECG
== END 2017-07-13 21:15 | disposition home or self-care (01) ==
LOC: H.ER 15:09
DX: F25.9 Schizoaffective disorder, unspecified (principal); Z86.59 Personal history of other mental and behavioral disorders
CPT/HCPCS: 80053; 81003; 85027; 93005; 99282; G0480

== ENCOUNTER 2017-09-16 12:06 | Inpatient (IN) | payer OTHER, MEDICAID ==
[2017-09-16 12:49] VITALS: O2SAT 98
--- NOTE | 2017-09-16 13:21 | ED PDOC ---
HPI: Psych/Substance Abuse Time Seen by Provider: 09/16/17 12:38 Chief Complaint (Nursing): Psychiatric Evaluation History Per: Patient History/Exam Limitations: no limitations Current Symptoms Are (Timing): Still Present Additional Complaint(s): 37 yo M c/o depression and SI for a "long time." Reports that he is not compliant with his anti-depressant medications. Denies any fever, headache, vomiting, trauma, injury, anxiety, hallucinations, HI. Has no other complaints. Past Medical History Vital Signs: Last Vital Signs Temp 98.2 F 09/16/17 12:45 Pulse 74 09/16/17 12:45 Resp 15 09/16/17 12:45 BP 131/71 09/16/17 12:45 Pulse Ox 98 09/16/17 12:45 - Medical History PMH: Bipolar Disorder, Depression, Schizophrenia Denies: Diabetes, Hepatitis, HIV, HTN, Chronic Kidney Disease, Seizures, Sexually Transmitted Disease - Family History Family History: States: Unknown Family Hx - Immunization History Hx Tetanus Toxoid Vaccination: No Hx Influenza Vaccination: Yes Hx Pneumococcal Vaccination: No - Allergies Allergies/Adverse Reactions: Allergies Allergy/AdvReac Type Severity Reaction Status Date / Time No Known Allergies Allergy Verified 08/07/17 09:51 Review of Systems Constitutional: Negative for: Fever, Chills Cardiovascular: Negative for: Chest Pain, Palpitations Respiratory: Negative for: Cough, Shortness of Breath Gastrointestinal: Negative for: Vomiting, Abdominal Pain Skin: Negative for: Rash Neurological: Negative for: Weakness, Numbness Psych: Positive for: Depression, Suicidal ideation Physical Exam - Physical Exam Appears: Positive for: Well, Non-toxic, No Acute Distress Head Exam: Positive for: ATRAUMATIC, NORMAL INSPECTION, NORMOCEPHALIC Skin: Positive for: Normal Color, Warm, DRY Eye Exam: Positive for: EOMI, Normal appearance, PERRL ENT: Positive for: Normal ENT Inspection Neck: Positive for: Normal, Painless ROM Cardiovascular/Chest: Positive for: Regular Rate, Rhythm Respiratory: Positive for: CNT, Normal Breath Sounds Gastrointestinal/Abdominal: Positive for: Normal Exam, Soft Back: Positive for: Normal Inspection Extremity: Positive for: Normal ROM Neurologic/Psych: Positive for: Alert, kitchen chef II-XII, Oriented, Mood/Affect (+flat affect). Negative for: Motor/Sensory Deficits - Laboratory Results Result Diagrams: 09/16/17 13:35 09/16/17 13:35 - ECG O2 Sat by Pulse Oximetry: 98 Medical Decision Making Medical Decision Making: Plan : - Labs - 1 to 1 - Crisis evaluation Labs reviewed, patient is medically cleared for psych evaluation. 1415 Patient seen and evaluated by crisis team, and per Dr. Brown, patient to be admitted for schizoeffective bipolar disorder. Disposition - Clinical Impression Clinical Impression: Schizoaffective disorder - Patient ED Disposition Is Patient to be Admitted: Yes - Disposition Disposition Time: 14:15 Condition: STABLE - PA / PROTOZOOLOGIST / Resident Statement MD/DO has reviewed & agrees with the documentation as recorded.
[2017-09-16 13:52] LABS: SQUAMOUS EPITHIAL < 1 /hpf (0-5); URINE BILIRUBIN NEGATIVE (NEGATIVE); URINE BLOOD NEGATIVE (NEGATIVE); URINE CLARITY CLEAR (Clear); URINE COLOR YELLOW (YELLOW); URINE GLUCOSE (UA) NEG (Normal); URINE LEUKOCYTE ESTERASE NEG Leu/uL (Negative); URINE PROTEIN 30 mg/dL (NEGATIVE); URINE UROBILINOGEN 0.2-1.0 mg/dL (0.2-1.0)
[2017-09-16 13:54] LABS: BASO % 0.2 % (0.0-2.0); EOS % 0.2 % (0.0-4.0); HEMOGLOBIN 13.8 g/dL (12.0-18.0); LYMPH # 1.2 K/uL (1.0-4.3); LYMPH % 13.5 % (20.0-40.0); MEAN CELL VOLUME 78.6 fl (80.0-94.0); MEAN CORPUSCULAR HEMOGLOBIN 25.8 pg (27.0-31.0); MEAN CORPUSCULAR HGB CONC 32.8 g/dL (33.0-37.0); MEAN PLATELET VOLUME 9.7 fl (7.2-11.7); MONO # 0.4 K/uL (0.0-0.8); MONO % 4.4 % (0.0-10.0); NEUT # 7.1 K/uL (1.8-7.0); NEUT % 81.7 % (50.0-75.0); RBC 5.36 Mil/uL (4.40-5.90); RED CELL DISTRIBUTION WIDTH 15.2 % (11.5-14.5); WHITE BLOOD COUNT 8.7 K/uL (4.8-10.8)
[2017-09-16 14:00] LABS: BLOOD UREA NITROGEN 12 mg/dl (9-20); CALCIUM 9.9 mg/dL (8.4-10.2); GFR AFRICAN-AMERICAN > 60; GFR NON-AFRICAN AMERICAN > 60
[2017-09-16 14:10] LABS: BARBITURATES, UR NEGATIVE (NEGATIVE); BENZODIAZEPINES, UR NEGATIVE (NEGATIVE); OPIATES, UR NEGATIVE (NEGATIVE); PHENCYCLIDINE, UR NEGATIVE (NEGATIVE)
[2017-09-16] MEDS ORDERED: DiphenhydrAMINE 50 mg/ml Inj IM PRN (17:11)
[2017-09-16] MEDS ORDERED: Alum-Mag Hydrox-Simethicone Susp (30 mL) PO PRN (17:11)
[2017-09-16] MEDS ORDERED: Magnesium Hydroxide Susp 30 ml UD PO PRN (17:11)
--- NOTE | 2017-09-16 18:16 | PCM.BM ---
Addendum entered and electronically signed by Payton Schulte MSW 10/04/17 16: 37: Treatment Plan Review - Discharge / Continuing Care Discharge to:: Other (Pt. continues to report suicidal ideations and inability to contract for saftey in the community if discharged. Patient currently being referred to ECT.) Behavioral Health Services: Outpatient therapy, Other (possible ECT) Health Needs: Follow up care/test, Medications/Rx Addendum entered and electronically signed by Payton Schulte MSW 09/27/17 15: 45: Treatment Plan Review - Discharge / Continuing Care Discharge to:: Home, With Family Behavioral Health Services: Outpatient therapy Health Needs: Follow up care/test, Medications/Rx Original Note: <Gladys Cadet - Last Filed: 09/16/17 18:14> Treatment assets and liabiliti Patient Assests: cooperative, motivated, resourceful, self-reliant, ADL independent, physically healthy, negotiates basic needs, cognitively intact Patient Liabilities: poor support system, relationship conflicts, other - Milieu Protocol Maintain good personal hygiene: daily Encourage regular showers, daily Remind patient to perform daily oral care, daily Assist patient to perform ADL's Conduct patient checks and document Observation sheet: Q15 minutes Maintain personal safety: daily Educate patient to report safety concerns to staff, daily Monitor environment for contraband/sharps Medication safety: Monitor for expected outcome, potential side effects: daily, Assess barriers to learning: daily, Assess readiness for medication education: daily <Payton Schulte - Last Filed: 10/04/17 16:36> Treatment assets and liabiliti Patient Assests: adapts well, cooperative, motivated Family Contact Family involvement: Family/SO is involved Family contact: Patient agrees to contact, Family has been contacted by patient Family contact name: Jodie Molina ([phone]) Family contacted how many times per week?: 2 Family contact comment: Professional Model placed call to pts mother Jodie Molina ) to discuss precursors to pts admission, collect further collateral and provide clinical updates. Phone rang several times without option for blurb writer to leave voicemail with call back number. Professional Model to place call at later time. - Goals for Treatment Patient goals for treatment: Patient to continue stabilization on 3NP through medication management and group/supportive therapy to address sxs of depression and eliminate SI. Patient to be encouraged to attend groups regularly to promote self-awareness, limit setting and improve insight, compliance, coping skills and self-esteem. Patient to be provided with referral for appropriate level of aftercare to reduce risk of future hospitalizations and ensure safety in the community. Discharge/Continuing Care - Education Needs Education Needs: Family Medication, Family Diagnosis/Disease Process, Family Coping Skills, Family Community resources, Family Aftercare Safety Plan, Patient Medication, Patient Diagnosis/Disease Process, Patient Coping Skills, Patient Community resources, Patient Aftercare Safety Plan - Discharge Discharge Criteria: Tolerates medication w/o severe side effects, Free of Suicidal thoughts, Normal sleep pattern, Ability to care for self, Reduction of target symptoms Discharge to:: Home, With Family - Treatment Team Participation Patient/Family/SO Statement: 09/20/17 12:52 Professional Model attended tx team this morning to discuss progress on 3NP and tx goals. Pt. continues to report sxs of depression, responding with hardly when asked if there have been improvement in sxs since admission. Pt. presents with passive suicidal ideations without plan or intent, stating I wish I didnt wake up this morning and I dont want to live anymore. Pt. more visible on 3NP but remains socially withdrawn and guarded. Pt. reports poor motivation and energy. Pt. reports sleep disturbances. Affect is blunted. Speech: somewhat underproductive. Medication changes discussed. Pt. agreeable. Pt. made aware of staff availability and encouraged to try and stay out of bed and socialize with peers to improve mood and sleep hygiene. Pt. receptive to feedback. Discussed with Family/SO: Yes Was Patient/Family/SO present at Treatment Team Meeting: Yes <Roger Brown - Last Filed: 10/05/17 14:53> - Diagnosis (1) Depression Status: Acute Interventions: psychotherapy, pharmacotherapy 10/05/17 14:53
[2017-09-16] MEDS: Paliperidone 3 MG ER TAB PO SCH (21:30)
[2017-09-16] MEDS ORDERED: Paliperidone 3 MG ER TAB PO ONE (22:00)
[2017-09-17 07:14] LABS: T4 7.42 ug/dl (5.5-11.0)
[2017-09-17] MEDS: Paliperidone 3 MG ER TAB PO SCH (09:11)
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
--- NOTE | 2017-09-18 07:12 | PCM.PYCHPN ---
Psychiatric Progress Note - Psychiatric Progress Note Patient seen today, length of contact: Patient evaluated, case discussed with team, chart reviewed Patient Chief Complaint: "I don't want to live anymore." Problems Identified/Issues Discussed: Patient reports that he feels depressed and does not want to live anymore. He denies active suicidal ideation/plan/intent, but he feels hopeless/helpless w/ anhedonia and lack of motivation. He reports difficulty sleeping at night. No AH/VH/paranoia/delusions. No adverse effects to medications reported. Medication Change: No Medical Record Reviewed: Yes Consults ordered or reviewed: Medicine consult Mental Status Examination - Cognitive Function Orientation: Person, Place, Situation, Time Memory: Intact Attention: WNL Concentration: WNL Association: WNL Fund of Knowledge: [facility] Decription of patient's judgement and insights: Poor I/J - Mood Mood: Depressed - Affect Affect: Constricted, Depressed - Speech Speech: Appropriate - Formal Thought Process Formal Thought Process: No Impairment Psychotic Thoughts and Behaviors: Denies AH/VH/paranoia/delusions - Suicidal Ideation Suicidal Ideation: Yes Plan: Passive suicidal ideation; no active suicidal ideation/plan/intent - Homicidal Ideation Homicidal Ideation: No Goal/Treatment Plan - Goal/Treatment Plan Need for Continued Stay: Remain at risks for inpatient hospitalization, Severe depression anxiety, Discharge may exacerbated symptoms Progress Toward Problem(s) and Goals/Treatment Plan: Schizoaffective Disorder -Effexor XR 75 mg PO Daily; will titrate gradually as clinically indicated -Invega 3 mg PO HS -Individual and group therapy -Psychoeducation -Medicine consult -Disposition planning Estimated Date of D/C: 09/24/17
[2017-09-18] MEDS: Paliperidone 3 MG ER TAB PO SCH (10:13)
[2017-09-18] MEDS: Venlafaxine 75 mg ER Cap PO SCH (10:13)
--- NOTE | 2017-09-19 08:00 | PCM.PYCHPN ---
Psychiatric Progress Note - Psychiatric Progress Note Patient seen today, length of contact: Patient evaluated, case discussed with team, chart reviewed Patient Chief Complaint: "I don't want to live anymore." Problems Identified/Issues Discussed: Patient reports that he continues to feel depressed and does not want to live anymore. He denies active suicidal ideation/plan/intent, but he feels hopeless/ helpless w/ anhedonia and lack of motivation. +Poor sleep +Poor appetite. No AH/VH/paranoia/delusions. No adverse effects to medications reported. Medication Change: No Medical Record Reviewed: Yes Consults ordered or reviewed: Medicine consult Mental Status Examination - Cognitive Function Orientation: Person, Place, Situation, Time Memory: Intact Attention: WNL Concentration: WNL Association: WNL Fund of Knowledge: [facility] Decription of patient's judgement and insights: Poor I/J - Mood Mood: Depressed - Affect Affect: Constricted, Depressed - Speech Speech: Appropriate - Formal Thought Process Formal Thought Process: No Impairment Psychotic Thoughts and Behaviors: Denies AH/VH/paranoia/delusions Additional comments: Passive suicidal ideation, no current plan or intent - Suicidal Ideation Suicidal Ideation: Yes - Homicidal Ideation Homicidal Ideation: No Goal/Treatment Plan - Goal/Treatment Plan Need for Continued Stay: Remain at risks for inpatient hospitalization, Severe depression anxiety, Discharge may exacerbated symptoms Progress Toward Problem(s) and Goals/Treatment Plan: Schizoaffective Disorder -Effexor XR 75 mg PO Daily; will titrate gradually as clinically indicated -Invega 3 mg PO HS -Individual and group therapy -Psychoeducation -Medicine consult -Disposition planning Estimated Date of D/C: 09/24/17
[2017-09-19] MEDS: Venlafaxine 75 mg ER Cap PO SCH (09:03)
[2017-09-19] MEDS: Paliperidone 3 MG ER TAB PO SCH (09:03)
[2017-09-20] MEDS: Paliperidone 3 MG ER TAB PO SCH (10:03)
[2017-09-20] MEDS: Venlafaxine 75 mg ER Cap PO SCH (10:04)
--- NOTE | 2017-09-20 17:45 | PCM.PYCHPN ---
Psychiatric Progress Note - Psychiatric Progress Note Patient seen today, length of contact: Patient evaluated, case discussed with team, chart reviewed Patient Chief Complaint: I am depressed , suicidal and I hear voices Problems Identified/Issues Discussed: pt evaluated with treatment team, continues to report depressed mood feeling hopeless and helpless with passive suicidal ideation without active plan or intent on the unit , pt continues to experience non command auditory hallucinations, putting him down and making him feel worhtless, reported poor energy and poor motivation, discussed with pt increasing risperidone and increasing effexor encouraged pt to attend groups pt denied any current active suicidal ideation denied homicidal ideation DSM 5 Symptoms Update: schizoaffective disorder depressed Medication Change: Yes (increase risperidone ) Medical Record Reviewed: Yes Mental Status Examination - Cognitive Function Orientation: Person, Place, Situation, Time Memory: Intact Attention: WNL Concentration: WNL Association: WNL Fund of Knowledge: WNL - Mood Mood: Depressed - Affect Affect: Constricted, Depressed - Speech Speech: Appropriate, Soft - Formal Thought Process Formal Thought Process: Hallucinations, Circumstantial Psychotic Thoughts and Behaviors: pt reported non command AH - Suicidal Ideation Suicidal Ideation: No - Homicidal Ideation Homicidal Ideation: No Goal/Treatment Plan - Goal/Treatment Plan Need for Continued Stay: Remain at risks for inpatient hospitalization, Severe depression anxiety, Discharge may exacerbated symptoms Progress Toward Problem(s) and Goals/Treatment Plan: discontinue invega start risperidone 2mg qhs, cogentin 0.5mg qhs effexor 75mg increase gradually CBT group and supportive therapy Estimated Date of D/C: 09/24/17
[2017-09-20] MEDS: Risperidone M TAB 2 MG PO SCH (21:07)
[2017-09-21] MEDS ORDERED: Venlafaxine 75 mg ER Cap PO SCH (09:00)
[2017-09-21] MEDS: Risperidone M tab 1 MG PO SCH (09:06)
--- NOTE | 2017-09-21 17:58 | PCM.PYCHPN ---
Psychiatric Progress Note - Psychiatric Progress Note Patient seen today, length of contact: Patient evaluated, case discussed with team, chart reviewed Patient Chief Complaint: I am depressed , but I do not hear the voices any more Problems Identified/Issues Discussed: pt evaluated reported clearing off of the auditory hallucinations with risperidone, continues to report feeling depressed with low energy and low motivation, discussed increasing dose of effexor , also discussed joining partial hospital program on discharge , encouraged pt to attend groups , no reported side effects of medications pt denied any current active suicidal ideation denied homicidal ideation DSM 5 Symptoms Update: major depression recurrent with psychotic features Medication Change: Yes (increase effexor) Medical Record Reviewed: Yes Mental Status Examination - Cognitive Function Orientation: Person, Place, Situation, Time Memory: Intact Attention: WNL Concentration: WNL Association: WNL Fund of Knowledge: WNL - Mood Mood: Depressed - Affect Affect: Constricted, Depressed - Speech Speech: Appropriate, Soft - Formal Thought Process Formal Thought Process: Hallucinations, Circumstantial Psychotic Thoughts and Behaviors: pt reported clearing off of the non command AH - Suicidal Ideation Suicidal Ideation: No - Homicidal Ideation Homicidal Ideation: No Goal/Treatment Plan - Goal/Treatment Plan Need for Continued Stay: Remain at risks for inpatient hospitalization, Severe depression anxiety, Discharge may exacerbated symptoms Progress Toward Problem(s) and Goals/Treatment Plan: risperidone 2mg qhs, cogentin 0.5mg qhs increase effexor 150mg daily CBT group and supportive therapy Estimated Date of D/C: 09/24/17
[2017-09-21] MEDS: Risperidone M TAB 2 MG PO SCH (21:15)
[2017-09-22] MEDS: Risperidone M tab 1 MG PO SCH (09:03)
[2017-09-22] MEDS: Venlafaxine 150 mg ER Cap PO SCH (09:04)
--- NOTE | 2017-09-22 15:56 | PCM.PYCHPN ---
Psychiatric Progress Note - Psychiatric Progress Note Patient seen today, length of contact: Patient evaluated, case discussed with team, chart reviewed Patient Chief Complaint: I am trying to motivate myself Problems Identified/Issues Discussed: pt evaluated reported continues to feel depressed but has improved level of energy, feeling more motivated to attend groups and participate in treatment reported clearing off of the auditory hallucinations with risperidone, , discussed joining partial hospital program on discharge , no reported side effects of medications pt denied any current active suicidal ideation denied homicidal ideation DSM 5 Symptoms Update: schizoaffective diosorder bipolar Medication Change: No Medical Record Reviewed: Yes Mental Status Examination - Cognitive Function Orientation: Person, Place, Situation, Time Memory: Intact Attention: WNL Concentration: WNL Association: WNL Fund of Knowledge: WNL - Mood Mood: Depressed, Anxious - Affect Affect: Constricted, Depressed - Speech Speech: Appropriate, Soft - Formal Thought Process Formal Thought Process: Hallucinations, Circumstantial Psychotic Thoughts and Behaviors: pt reported clearing off of the non command AH - Suicidal Ideation Suicidal Ideation: No - Homicidal Ideation Homicidal Ideation: No Goal/Treatment Plan - Goal/Treatment Plan Need for Continued Stay: Remain at risks for inpatient hospitalization, Severe depression anxiety, Discharge may exacerbated symptoms Progress Toward Problem(s) and Goals/Treatment Plan: risperidone 2mg qhs, 1mg daily cogentin 0.5mg qhs effexor 150mg daily CBT group and supportive therapy Estimated Date of D/C: 09/24/17
[2017-09-22] MEDS: Risperidone M TAB 2 MG PO SCH (21:14)
[2017-09-23] MEDS: Risperidone M tab 1 MG PO SCH (08:38)
[2017-09-23] MEDS: Venlafaxine 150 mg ER Cap PO SCH (08:39)
--- NOTE | 2017-09-23 14:52 | PCM.PYCHPN ---
Psychiatric Progress Note - Psychiatric Progress Note Patient seen today, length of contact: Patient evaluated, case discussed with team, chart reviewed Patient Chief Complaint: I still feel down but I am trying to get out of it Problems Identified/Issues Discussed: pt evaluated , seen in day room, more interactive with staff and other patients , attending groups, discussed with pt starting risperidone consta to ensure compliance , pt agreed, will start risperidone consta 25mg IM and monitor for side effects, pt agreed to be linked to partial hospital program on discharge CBT provided for depressed mood, no reported side effects of medications pt denied any current active suicidal ideation denied homicidal ideation DSM 5 Symptoms Update: schizoaffective disorder bipolar Medication Change: Yes (start risperidone consta) Medical Record Reviewed: Yes Mental Status Examination - Cognitive Function Orientation: Person, Place, Situation, Time Memory: Intact Attention: WNL Concentration: WNL Association: WNL Fund of Knowledge: WNL - Mood Mood: Depressed, Anxious - Affect Affect: Constricted, Depressed - Speech Speech: Appropriate - Formal Thought Process Formal Thought Process: Hallucinations, Circumstantial Psychotic Thoughts and Behaviors: pt reported clearing off of the non command AH - Suicidal Ideation Suicidal Ideation: No - Homicidal Ideation Homicidal Ideation: No Goal/Treatment Plan - Goal/Treatment Plan Need for Continued Stay: Remain at risks for inpatient hospitalization, Severe depression anxiety, Discharge may exacerbated symptoms Progress Toward Problem(s) and Goals/Treatment Plan: risperidone 2mg qhs, 1mg daily cogentin 0.5mg qhs start risperidone consta 25mg im [id number], first dose 09/24/17 effexor 150mg daily CBT group and supportive therapy Estimated Date of D/C: 09/27/17
[2017-09-23] MEDS: Risperidone M TAB 2 MG PO SCH (21:13)
[2017-09-24] MEDS: Risperidone M tab 1 MG PO SCH (08:54)
[2017-09-24] MEDS: Venlafaxine 150 mg ER Cap PO SCH (08:54)
[2017-09-24] MEDS ORDERED: risperiDONE Consta 25mg/2ml Syringe IM ONE (12:27)
--- NOTE | 2017-09-24 15:23 | PCM.PYCHPN ---
Psychiatric Progress Note - Psychiatric Progress Note Patient seen today, length of contact: Patient evaluated, case discussed with team, chart reviewed Patient Chief Complaint: I feel better and I WANT TO ATTEND [facility] Problems Identified/Issues Discussed: pt evaluated , seen in day room, BETTER GROOMED more interactive with staff and other patients, attending groups, NO REPORTED SIDE EFFECTS OF MEDICATIONS, PT STARTED ON RISPERIDONE CONSTA 25MG IM , will be monitored for side effects rpt agreed to attend partial program on discharge pt denied any current active suicidal thoughts reported complete clearing of the AH DSM 5 Symptoms Update: schizoaffective disorder Medication Change: Yes (start risperidone consta) Medical Record Reviewed: Yes Mental Status Examination - Cognitive Function Orientation: Person, Place, Situation, Time Memory: Intact Attention: WNL Concentration: WNL Association: WNL Fund of Knowledge: WNL - Mood Mood: Depressed, Anxious - Affect Affect: Constricted, Depressed - Speech Speech: Appropriate - Formal Thought Process Formal Thought Process: Hallucinations, Circumstantial Psychotic Thoughts and Behaviors: pt reported clearing off of the non command AH - Suicidal Ideation Suicidal Ideation: No - Homicidal Ideation Homicidal Ideation: No Goal/Treatment Plan - Goal/Treatment Plan Need for Continued Stay: Remain at risks for inpatient hospitalization, Severe depression anxiety, Discharge may exacerbated symptoms Progress Toward Problem(s) and Goals/Treatment Plan: risperidone 2mg qhs, 1mg daily cogentin 0.5mg qhs risperidone consta 25mg im [id number], first dose 09/24/17 effexor 150mg daily CBT group and supportive therapy Estimated Date of D/C: 09/27/17
[2017-09-24] MEDS: Risperidone M TAB 2 MG PO SCH (21:31)
[2017-09-25] MEDS: Venlafaxine 150 mg ER Cap PO SCH (08:41)
[2017-09-25] MEDS: Risperidone M tab 1 MG PO SCH (08:41)
--- NOTE | 2017-09-25 13:19 | PCM.PYCHPN ---
Psychiatric Progress Note - Psychiatric Progress Note Patient seen today, length of contact: Patient evaluated, case discussed with team, chart reviewed Patient Chief Complaint: reports is somewhat more hopeful for the future, has started medication injection, staff report pt somewhat more visible on unit Problems Identified/Issues Discussed: alteration in mood and cognition Medical Problems: per chart Diagnostic Results: per psychiatry per medicine per nursing per social work per recreational therapy Medication Change: No Medical Record Reviewed: Yes Consults ordered or reviewed: pt seen by hospitalist Mental Status Examination - Cognitive Function Orientation: Person, Place, Situation, Time Memory: Intact Attention: WNL Concentration: WNL Association: [facility] Fund of Knowledge: [facility] Decription of patient's judgement and insights: impaired - Mood Mood: Depressed, Anxious Additional comments: somewhat less - Affect Affect: Constricted, Depressed - Speech Speech: Appropriate - Formal Thought Process Formal Thought Process: Paranoia, Circumstantial - Suicidal Ideation Suicidal Ideation: No - Homicidal Ideation Homicidal Ideation: No Goal/Treatment Plan - Goal/Treatment Plan Need for Continued Stay: Remain at risks for inpatient hospitalization, Severe depression anxiety, Discharge may exacerbated symptoms Progress Toward Problem(s) and Goals/Treatment Plan: inpt milieu vital signs and clinical observation per protocol and per status team may consider icms/partial hospital program discharge planning in progress Estimated Date of D/C: 09/27/17 - Smoking Cessation Smoking Cessation Initiated: No Reason for not providing: pt defers
[2017-09-25] MEDS: Risperidone M TAB 2 MG PO SCH (21:18)
[2017-09-26] MEDS: Venlafaxine 150 mg ER Cap PO SCH (09:49)
[2017-09-26] MEDS: Risperidone M tab 1 MG PO SCH (09:49)
[2017-09-26] MEDS: Risperidone M TAB 2 MG PO SCH (21:00)
--- NOTE | 2017-09-26 22:01 | PCM.PYCHPN ---
Psychiatric Progress Note - Psychiatric Progress Note Patient seen today, length of contact: Patient evaluated, case discussed with team, chart reviewed Patient Chief Complaint: pt seen in room, reports that has been on meds for a while, does want to get better, has not ever received ECT-is open to discussing with team in am. pt can contract for safety, has been adherent with treatment per staff, came to desk to request prn rx. Problems Identified/Issues Discussed: alteration in mood and cognition Medical Problems: per chart Diagnostic Results: per psychiatry per medicine per nursing per social work per recreational therapy DSM 5 Symptoms Update: chronic depression minimal improvement Medication Change: No Medical Record Reviewed: Yes Consults ordered or reviewed: pt seen by hospitalist Mental Status Examination - Cognitive Function Orientation: Person, Place, Situation, Time Memory: Intact Attention: WNL Concentration: WNL Association: WNL Fund of Knowledge: WN Decription of patient's judgement and insights: impaired - Mood Mood: Depressed, Anxious - Affect Affect: Constricted, Depressed - Speech Speech: Appropriate - Formal Thought Process Formal Thought Process: Paranoia, Circumstantial - Suicidal Ideation Suicidal Ideation: No - Homicidal Ideation Homicidal Ideation: No Goal/Treatment Plan - Goal/Treatment Plan Need for Continued Stay: Remain at risks for inpatient hospitalization, Severe depression anxiety, Discharge may exacerbated symptoms Progress Toward Problem(s) and Goals/Treatment Plan: inpt milieu vital signs and clinical observation per protocol and per status team may consider icms/partial hospital program team may consider ect if clinically appropriate as pt expressed interest discharge planning in progress Estimated Date of D/C: 09/27/17 - Smoking Cessation Smoking Cessation Initiated: No Reason for not providing: pt defers
[2017-09-27] MEDS: Venlafaxine 150 mg ER Cap PO SCH (09:33)
[2017-09-27] MEDS: Risperidone M tab 1 MG PO SCH (09:33)
--- NOTE | 2017-09-27 16:12 | PCM.PYCHPN ---
Psychiatric Progress Note - Psychiatric Progress Note Patient seen today, length of contact: Patient evaluated, case discussed with team, chart reviewed Patient Chief Complaint: I feel depressed agian I have no hope in life Problems Identified/Issues Discussed: pt evaluated , reported feeling depressed , stated worried about being discharged as he is feeling hopeless and has nothing to look forward to on discharge CBT provided, discussed with pt the need to set up goals for self and discussed adopting more healthy coping skills with life stressors other than acting out and attempting to hurt self, disussed with pt the need to be compliant with treatment and follow up plan on discharge discussed increasing dose of effexor pt reported passive suicidal ideation denied any current active suicidal plan on the unit , reported complete clearing of the AH, denied side effects of medications DSM 5 Symptoms Update: schizoaffective disorder depressed Medication Change: No Medical Record Reviewed: Yes Mental Status Examination - Cognitive Function Orientation: Person, Place, Situation, Time Memory: Intact Attention: WNL Concentration: WNL Association: WNL Fund of Knowledge: WNL - Mood Mood: Depressed, Anxious - Affect Affect: Constricted, Depressed - Speech Speech: Appropriate - Formal Thought Process Formal Thought Process: Paranoia, Circumstantial - Suicidal Ideation Suicidal Ideation: No - Homicidal Ideation Homicidal Ideation: No Goal/Treatment Plan - Goal/Treatment Plan Need for Continued Stay: Remain at risks for inpatient hospitalization, Severe depression anxiety, Discharge may exacerbated symptoms Progress Toward Problem(s) and Goals/Treatment Plan: risperidone 2mg qhs, 1mg daily cogentin 0.5mg qhs risperidone consta 25mg im [id number], first dose 09/24/17 effexor 150mg daily CBT group and supportive therapy Estimated Date of D/C: 10/01/17
[2017-09-27] MEDS: Risperidone M TAB 2 MG PO SCH (21:33)
[2017-09-27] MEDS: Venlafaxine 37.5 mg ER Cap PO SCH (21:33)
[2017-09-28] MEDS: Risperidone M tab 1 MG PO SCH (09:46)
[2017-09-28] MEDS: Venlafaxine 150 mg ER Cap PO SCH (09:46)
--- NOTE | 2017-09-28 15:25 | PCM.PYCHPN ---
Psychiatric Progress Note - Psychiatric Progress Note Patient seen today, length of contact: Patient evaluated, case discussed with team, chart reviewed Patient Chief Complaint: I do not have any motivation to change my life Problems Identified/Issues Discussed: pt evaluated , continues to present with depressed mood and affect, reported passive suicidal ideation denied any current active suicidal plan on the unit , discussed with pt current stressors indicated having financial stressors, unable to have a car or his own apartment also having to live with the parents with a poor relation with them , CBT provided, also encouraged pt to set goals on discharge for possible volunteer work and applying for possible occupations effexor being increased gradually, pt in need of intensive therapy on discharge pt reported complete clearing of the AH, denied side effects of medications, denied homicidal ideation DSM 5 Symptoms Update: schizoaffective disorder Medication Change: No Medical Record Reviewed: Yes Mental Status Examination - Cognitive Function Orientation: Person, Place, Situation, Time Memory: Intact Attention: WNL Concentration: WNL Association: WNL Fund of Knowledge: WNL - Mood Mood: Depressed, Anxious - Affect Affect: Constricted, Depressed - Speech Speech: Appropriate - Formal Thought Process Formal Thought Process: Paranoia, Circumstantial - Suicidal Ideation Suicidal Ideation: No - Homicidal Ideation Homicidal Ideation: No Goal/Treatment Plan - Goal/Treatment Plan Need for Continued Stay: Remain at risks for inpatient hospitalization, Severe depression anxiety, Discharge may exacerbated symptoms Progress Toward Problem(s) and Goals/Treatment Plan: risperidone 2mg qhs, 1mg daily cogentin 0.5mg qhs risperidone consta 25mg im [id number], first dose 09/24/17 effexor 150mg daily and 37.5mg qhs CBT group and supportive therapy Estimated Date of D/C: 10/01/17
[2017-09-28] MEDS: Venlafaxine 37.5 mg ER Cap PO SCH (21:11)
[2017-09-28] MEDS: Risperidone M TAB 2 MG PO SCH (21:12)
[2017-09-29] MEDS: Venlafaxine 150 mg ER Cap PO SCH (11:22)
[2017-09-29] MEDS: Risperidone M tab 1 MG PO SCH (11:23)
--- NOTE | 2017-09-29 15:08 | RAD ---
HISTORY: Transfer COMPARISON: 06/07/2017 FINDINGS: LUNGS: On the current study projecting over the left lung base, a very rounded 2.2 cm opacity is seen not appreciated such on the prior study clinical correlation to exclude any extrinsic pathology here is recommended. At minimum recommend bilateral shallow upright oblique chest x-ray views after excluding any extrinsic pathology. If this finding persists then a noncontrast CT chest exam is recommended. PLEURA: No significant pleural effusion identified, no pneumothorax apparent. CARDIOVASCULAR: Normal. OSSEOUS STRUCTURES: No significant abnormalities. VISUALIZED UPPER ABDOMEN: Normal. OTHER FINDINGS: None. IMPRESSION: On the current study projecting over the left lung base, a very rounded 2.2 cm opacity is seen not appreciated such on the prior study clinical correlation to exclude any extrinsic pathology here is recommended. At minimum recommend bilateral shallow upright oblique chest x-ray views after excluding any extrinsic pathology. If this finding persists then a noncontrast CT chest exam is recommended.
--- NOTE | 2017-09-29 15:20 | PCM.PYCHPN ---
Psychiatric Progress Note - Psychiatric Progress Note Patient seen today, length of contact: Patient evaluated, case discussed with team, chart reviewed Patient Chief Complaint: I am having suicidal thoughts, I could not live outside the hospital Problems Identified/Issues Discussed: pt evaluated with team , continues to present with depressed mood and affect, anhedonic reporting feeling hopeless about his life seeing no hope in the future continues to contemplate suicide reporting he has no active plan on the unit yet he has no desire to live outside the hospital, discussed with pt will be cross tapering effexor with wellbutrin also the need to be screened for involuntary admission due to being continuosly risk for self with active suicidal ideations on dischargee , pt agreed as he has no motivation to continue living outside the hospital CBT and supportive therapy provided denied any current command hallucinations DSM 5 Symptoms Update: schizoaffective disorder Medication Change: Yes (start wellbutrin) Medical Record Reviewed: Yes Mental Status Examination - Cognitive Function Orientation: Person, Place, Situation, Time Memory: Intact Attention: WNL Concentration: Poor Association: WNL Fund of Knowledge: WNL Decription of patient's judgement and insights: poor insight and judgment - Mood Mood: Depressed, Anxious - Affect Affect: Constricted, Depressed - Speech Speech: Appropriate - Formal Thought Process Formal Thought Process: Paranoia, Circumstantial Psychotic Thoughts and Behaviors: pt denied command hallucinations - Suicidal Ideation Suicidal Ideation: No - Homicidal Ideation Homicidal Ideation: No Goal/Treatment Plan - Goal/Treatment Plan Need for Continued Stay: Remain at risks for inpatient hospitalization, Severe depression anxiety, Discharge may exacerbated symptoms Progress Toward Problem(s) and Goals/Treatment Plan: risperidone 2mg qhs, 1mg daily cogentin 0.5mg qhs risperidone consta 25mg im [id number], first dose 09/24/17 effexor 150mg daily , start wellbutrin 75mg daily with plan to cross titrate pt continues to verbalize suicdal ideations, will be referred for screening for higher level of care CBT group and supportive therapy Estimated Date of D/C: 10/01/17
--- NOTE | 2017-09-29 15:54 | CARD ---
APPROVED REPORT EKG Measurement Heart [id number] <Conclusion> Normal sinus rhythm Possible Left atrial enlargement Borderline ECG
[2017-09-29 20:00] LABS: BASO % 0.3 % (0.0-2.0); EOS # 0.4 K/uL (0.0-0.7); EOS % 4.4 % (0.0-4.0); HEMOGLOBIN 12.7 g/dL (12.0-18.0); LYMPH % 23.5 % (20.0-40.0); MEAN CELL VOLUME 79.9 fl (80.0-94.0); MEAN CORPUSCULAR HEMOGLOBIN 25.8 pg (27.0-31.0); MEAN CORPUSCULAR HGB CONC 32.2 g/dL (33.0-37.0); MEAN PLATELET VOLUME 9.7 fl (7.2-11.7); MONO # 0.6 K/uL (0.0-0.8); MONO % 6.5 % (0.0-10.0); NEUT # 5.7 K/uL (1.8-7.0); NEUT % 65.3 % (50.0-75.0); RBC 4.95 Mil/uL (4.40-5.90); RED CELL DISTRIBUTION WIDTH 15.2 % (11.5-14.5); WHITE BLOOD COUNT 8.7 K/uL (4.8-10.8)
[2017-09-29 20:23] LABS: ALB/GLOB RATIO 1.2 (1.0-2.1); ALBUMIN 4.2 g/dL (3.5-5.0); ALT/SGPT 28 U/L (21-72); AST/SGOT 19 U/L (17-59); BLOOD UREA NITROGEN 16 mg/dl (9-20); CALCIUM 9.5 mg/dL (8.4-10.2); GFR AFRICAN-AMERICAN > 60; GFR NON-AFRICAN AMERICAN > 60
[2017-09-29] MEDS: Risperidone M TAB 2 MG PO SCH (21:20)
[2017-09-30] MEDS: Venlafaxine 150 mg ER Cap PO SCH (08:21)
[2017-09-30] MEDS: Risperidone M tab 1 MG PO SCH (08:21)
--- NOTE | 2017-09-30 14:56 | PCM.PYCHPN ---
Psychiatric Progress Note - Psychiatric Progress Note Patient seen today, length of contact: Patient evaluated, case discussed with team, chart reviewed Patient Chief Complaint: I know if I am outside I have no reason to live Problems Identified/Issues Discussed: pt evaluated , continues to report feeling depressed , feeling hopeless about his life seeing no hope in the future continues to contemplate suicide reporting he has no active plan on the unit yet he has no desire to live outside the hospital, discussed with pt possible coping skills with depression and the need to develop coping skills with stresses , pt continues to be non receptive to ideas of setting goals , with poor motivation will continue cross tapering effexor with wellbutrin discussed with pt the possibility 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, pt agreed will initiate referral DSM 5 Symptoms Update: schizoaffective disorder depressed Medication Change: Yes (increase wellbutrin) Medical Record Reviewed: Yes Mental Status Examination - Cognitive Function Orientation: Person, Place, Situation, Time Memory: Intact Attention: WNL Concentration: Poor Association: WNL Fund of Knowledge: WNL Decription of patient's judgement and insights: poor insight and judgment - Mood Mood: Depressed, Anxious - Affect Affect: Constricted, Depressed - Speech Speech: Appropriate - Formal Thought Process Formal Thought Process: Paranoia, Circumstantial Psychotic Thoughts and Behaviors: pt denied command hallucinations - Suicidal Ideation Suicidal Ideation: No - Homicidal Ideation Homicidal Ideation: No Goal/Treatment Plan - Goal/Treatment Plan Need for Continued Stay: Remain at risks for inpatient hospitalization, Severe depression anxiety, Discharge may exacerbated symptoms Progress Toward Problem(s) and Goals/Treatment Plan: risperidone 2mg qhs, 1mg daily cogentin 0.5mg qhs risperidone consta 25mg im [id number], first dose 09/24/17 decrease effexor 75mg daily , increase wellbutrin 75mg bid with plan to cross titrate pt continues to verbalize suicdal ideations, will be referred for ECT CBT group and supportive therapy Estimated Date of D/C: 10/02/17
[2017-09-30] MEDS: Risperidone M TAB 2 MG PO SCH (21:03)
--- NOTE | 2017-10-01 04:46 | CON ---
DATE: 09/30/2017 INITIAL CONSULTATION HISTORY OF PRESENT ILLNESS: This is a 37 years old male with no significant past medical history, was admitted to psychiatry floor. Medical consultation was called for medical followup while the patient is in the psych floor. The patient denied to have any chest pain or shortness of breath. The patient denied having any nausea or vomiting, and other review of system is negative. ALLERGIES: NO KNOWN ALLERGIES. MEDICATIONS: Reviewed as per MAR. SOCIAL HISTORY: No history of smoking, EtOH, or substance abuse. FAMILY HISTORY: Noncontributory. PHYSICAL EXAMINATION: GENERAL: The patient is not in any cardiopulmonary distress. VITAL SIGNS: Blood pressure 134/67, temperature 98.1, respiratory rate 18, and pulse 92. HEENT: Pupils equal and reactive to light. Normal-appearing mucosa of the conjunctivae, oropharyngeal and nasal membrane mucosa. NECK: Supple. No JVD. No carotid bruits. No lymph node. No thyromegaly. CHEST AND LUNGS: Bilateral symmetrical expansion. Good air exchange. No rales. No rhonchi. CARDIOVASCULAR SYSTEM: PMI not localized. S1, S2. No additional sounds. ABDOMEN: Normoactive bowel sounds. No tenderness. No organomegaly. No masses. EXTREMITIES: No cyanosis, no clubbing, no edema. QUARTER SEAMER: Alert, awake, and oriented x3. No neurological deficit could be appreciated. ASSESSMENT: Hypercholesterolemia, history of ingrown nail, status post podiatry surgery. PLAN: Continue low-fat diet. The patient is counseled for diet and exercise. We will follow up the patient to review as needed. Hector Licea MD
[2017-10-01] MEDS: Risperidone M tab 1 MG PO SCH (08:56)
[2017-10-01] MEDS ORDERED: Venlafaxine 75 mg ER Cap PO SCH (09:00)
--- NOTE | 2017-10-01 16:51 | PCM.PYCHPN ---
Psychiatric Progress Note - Psychiatric Progress Note Patient seen today, length of contact: Patient evaluated, case discussed with team, chart reviewed Patient Chief Complaint: I still think how to hurt myself if I am outside the hospital Problems Identified/Issues Discussed: pt evaluated , continues to present with depressed mood and affect feeling hopeless about his life seeing no hope in the future continues to contemplate suicide reporting he has no active plan on the unit yet stated he has a plan on discharge, refusing to share with the undersigned discussed with pt tthe risks and benefits of ECT treatments for treatment resistant depression, pt agreed to proceed with the referral pt denied any active suicidal plan or intent on the unit denied command hallucinations, no reported side effects of wellbutrin DSM 5 Symptoms Update: schizoaffective disorder depressed Medication Change: Yes (increase wellbutrin) Medical Record Reviewed: Yes Mental Status Examination - Cognitive Function Orientation: Person, Place, Situation, Time Memory: Intact Attention: WNL Concentration: Poor Association: WNL Fund of Knowledge: WNL Decription of patient's judgement and insights: poor insight and judgment - Mood Mood: Depressed, Anxious - Affect Affect: Constricted, Depressed - Speech Speech: Appropriate - Formal Thought Process Formal Thought Process: Circumstantial Psychotic Thoughts and Behaviors: pt denied command hallucinations - Suicidal Ideation Suicidal Ideation: No - Homicidal Ideation Homicidal Ideation: No Goal/Treatment Plan - Goal/Treatment Plan Need for Continued Stay: Remain at risks for inpatient hospitalization, Severe depression anxiety, Discharge may exacerbated symptoms Progress Toward Problem(s) and Goals/Treatment Plan: risperidone 2mg qhs, 1mg daily cogentin 0.5mg qhs risperidone consta 25mg im [id number], first dose 09/24/17 discontinue effexor wellbutrin SR 150mg daily pt continues to verbalize suicdal ideations, referred for ECT CBT group and supportive therapy Estimated Date of D/C: 10/02/17
[2017-10-01] MEDS: Risperidone M TAB 2 MG PO SCH (21:04)
[2017-10-02] MEDS: Risperidone M tab 1 MG PO SCH (10:37)
[2017-10-02] MEDS: buPROPion SR 150 MG TABLET PO SCH (10:37)
--- NOTE | 2017-10-02 12:07 | PCM.PYCHPN ---
Psychiatric Progress Note - Psychiatric Progress Note Patient seen today, length of contact: Patient evaluated, case discussed with team, chart reviewed Patient Chief Complaint: pt has remained very depressed and withdrawn and still feels hopeless .pt denies suicidal ideation and able to contract for safety..no side effects to meds. Medication Change: Yes (increase wellbutrin) Medical Record Reviewed: Yes Mental Status Examination - Cognitive Function Orientation: Person, Place, Situation, Time Memory: Intact Attention: WNL Concentration: Poor Association: WNL Fund of Knowledge: WNL - Mood Mood: Depressed, Anxious - Affect Affect: Constricted, Depressed - Speech Speech: Appropriate - Formal Thought Process Formal Thought Process: Circumstantial - Suicidal Ideation Suicidal Ideation: No - Homicidal Ideation Homicidal Ideation: No Goal/Treatment Plan - Goal/Treatment Plan Need for Continued Stay: Remain at risks for inpatient hospitalization, Severe depression anxiety, Discharge may exacerbated symptoms Progress Toward Problem(s) and Goals/Treatment Plan: will continue to titate meds to stabilize the pt and engage in therapy and d/c plans as per dr dhillon. Estimated Date of D/C: 10/02/17
[2017-10-02] MEDS: Risperidone M TAB 2 MG PO SCH (21:08)
[2017-10-03] MEDS: Risperidone M tab 1 MG PO SCH (09:20)
[2017-10-03] MEDS: buPROPion SR 150 MG TABLET PO SCH (09:20)
[2017-10-03] MEDS: Risperidone M TAB 2 MG PO SCH (21:02)
[2017-10-04] MEDS: Risperidone M tab 1 MG PO SCH (10:00)
[2017-10-04] MEDS: buPROPion SR 150 MG TABLET PO SCH (10:00)
--- NOTE | 2017-10-04 14:04 | PCM.PYCHPN ---
Psychiatric Progress Note - Psychiatric Progress Note Patient seen today, length of contact: Patient evaluated, case discussed with team, chart reviewed Patient Chief Complaint: I have nothing good to look for in life, I should not have been born Problems Identified/Issues Discussed: pt evaluated with treatment team, continues to present with depressed mood and affect , anhedonia, melancholic thought process, verbalizing he has no interest in life wishing he was not born, discussed with pt challenging negative thoughts and thinking about alternatives, pt resistant to therapy at current time reporting feeling stuck , hopeless and helpless pt has failed three trials of different classes of antidepressants at optimum dose , discussed with pt again the ECT as option for treatment and for risks versus benefits , pt in agreement to proceed with ECT , will increase wellbutrin, in adition to referral to ECT pt denied active suicidal plan or intent on the unit , denied perceptual disturbances DSM 5 Symptoms Update: SCHIZOAFFECTIVE DISORDER DEPRESSED Medication Change: Yes (referral to ECT) Medical Record Reviewed: Yes Mental Status Examination - Cognitive Function Orientation: Person, Place, Situation, Time Memory: Intact Attention: WNL Concentration: Poor Association: WNL Fund of Knowledge: WNL - Mood Mood: Depressed, Anxious - Affect Affect: Constricted, Depressed - Speech Speech: Appropriate, Soft - Formal Thought Process Formal Thought Process: Circumstantial Psychotic Thoughts and Behaviors: pt denied any current psychotic symptoms, non elicited - Suicidal Ideation Suicidal Ideation: No - Homicidal Ideation Homicidal Ideation: No Goal/Treatment Plan - Goal/Treatment Plan Need for Continued Stay: Remain at risks for inpatient hospitalization, Severe depression anxiety, Discharge may exacerbated symptoms Progress Toward Problem(s) and Goals/Treatment Plan: risperidone 2mg qhs, 1mg daily cogentin 0.5mg qhs risperidone consta 25mg im [id number], first dose 09/24/17 wellbutrin SR 150mg daily, will increase gradually pt continues to verbalize suicdal ideations, referred for ECT CBT group and supportive therapy Estimated Date of D/C: 10/14/17
[2017-10-04 18:38] VITALS: RESP 18
[2017-10-04] MEDS: Risperidone M TAB 2 MG PO SCH (21:50)
[2017-10-05] MEDS: buPROPion SR 150 MG TABLET PO SCH (09:13)
[2017-10-05] MEDS: Risperidone M tab 1 MG PO SCH (09:13)
--- NOTE | 2017-10-05 15:24 | PCM.PYCHPN ---
Psychiatric Progress Note - Psychiatric Progress Note Patient seen today, length of contact: Patient evaluated, case discussed with team, chart reviewed Patient Chief Complaint: I want to do ECT maybe it will help me Problems Identified/Issues Discussed: pt evaluated , continues to present with depressed mood and affect , continues to verbalize having no interest in any activity , spending all his time in bed feeling stuck , hopeless and helpless pt has failed three trials of different classes of antidepressants at optimum dose , discussed with pt again the ECT as option for treatment and for risks versus benefits , pt in agreement to proceed with ECT , will increase wellbutrin, in adition to referral to ECT pt denied active suicidal plan or intent on the unit , denied perceptual disturbances DSM 5 Symptoms Update: schizoaffective disorder depressed Medication Change: Yes (increase wellbutrin) Medical Record Reviewed: Yes Mental Status Examination - Cognitive Function Orientation: Person, Place, Situation, Time Memory: Intact Attention: WNL Concentration: Poor Association: WNL Fund of Knowledge: WNL - Mood Mood: Depressed, Anxious - Affect Affect: Constricted, Depressed - Speech Speech: Appropriate, Soft - Formal Thought Process Formal Thought Process: Circumstantial Psychotic Thoughts and Behaviors: pt denied any current psychotic symptoms, non elicited - Suicidal Ideation Suicidal Ideation: No - Homicidal Ideation Homicidal Ideation: No Goal/Treatment Plan - Goal/Treatment Plan Need for Continued Stay: Remain at risks for inpatient hospitalization, Severe depression anxiety, Discharge may exacerbated symptoms Progress Toward Problem(s) and Goals/Treatment Plan: risperidone 2mg qhs, 1mg daily cogentin 0.5mg qhs risperidone consta 25mg im [id number], first dose 09/24/17 wellbutrin SR 150mg bid trazodone 100mg qhs pt continues to verbalize suicdal ideations, referred for ECT CBT group and supportive therapy Estimated Date of D/C: 10/14/17
[2017-10-05] MEDS ORDERED: buPROPion SR 150 MG TABLET PO SCH (17:00)
[2017-10-05 17:25] VITALS: TEMP 98.2
[2017-10-05 17:58] VITALS: BP 103/67; PULSE 87
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
== END 2017-10-05 18:40 | DRG 885 ==
LOC: H.ER 12:06 → H.ERHOLD 14:16 → H.PSYCH 16:49
PROVIDERS: ADMIT Psychiatry & Neurology Psychiatry; ATTEND Psychiatry & Neurology Psychiatry
PROC: GZHZZZZ Group Psychotherapy (ICD-10-PCS; principal; 2017-09-16)
PROC: GZ58ZZZ Individual Psychotherapy, Cognitive-Behavioral (ICD-10-PCS; 2017-09-16)
DX: F25.1 Schizoaffective disorder, depressive type (principal); R45.851 Suicidal ideations; E78.00 Pure hypercholesterolemia, unspecified; Z81.8 Family history of other mental and behavioral disorders

== ENCOUNTER 2018-01-04 14:55 | Inpatient (IN) | payer OTHER ==
--- NOTE | 2018-01-04 15:38 | ED PDOC ---
HPI: Psych/Substance Abuse Time Seen by Provider: 01/04/18 15:09 Chief Complaint (Nursing): Psychiatric Evaluation Chief Complaint (Provider): Suicidal History Per: Patient History/Exam Limitations: no limitations Onset/Duration Of Symptoms: Days (3 weeks) Current Symptoms Are (Timing): Still Present Additional Complaint(s): Suicidal. Not homicidal. No drugs or etoh. No act on thoughts. Not taking psych meds as rx. No weakness, chest pain, dyspnea, abd pain, nasuea. Past Medical History Reviewed: Nursing Documentation, Vital Signs Vital Signs: Last Vital Signs Temp 99.0 F 01/04/18 14:57 Pulse 82 01/04/18 14:57 Resp 16 01/04/18 14:57 BP 147/64 01/04/18 14:57 Pulse Ox 99 01/04/18 14:57 - Medical History PMH: Bipolar Disorder, Depression, Schizophrenia Denies: Diabetes, Hepatitis, HIV, HTN, Chronic Kidney Disease, Seizures, Sexually Transmitted Disease - Family History Family History: States: Unknown Family Hx - Immunization History Hx Tetanus Toxoid Vaccination: No Hx Influenza Vaccination: Yes Hx Pneumococcal Vaccination: No - Allergies Allergies/Adverse Reactions: Allergies Allergy/AdvReac Type Severity Reaction Status Date / Time No Known Allergies Allergy Verified 01/04/18 14:57 Review of Systems ROS Statement: Except As Marked, All Systems Reviewed And Found Negative Psych: Positive for: Suicidal ideation Physical Exam - Reviewed Nursing Documentation Reviewed: Yes Vital Signs Reviewed: Yes - Physical Exam Appears: Positive for: Well, Non-toxic, No Acute Distress Head Exam: Positive for: ATRAUMATIC, NORMAL INSPECTION, NORMOCEPHALIC Skin: Positive for: Normal Color, Warm, DRY Eye Exam: Positive for: EOMI, Normal appearance, PERRL ENT: Positive for: Normal ENT Inspection Neck: Positive for: Normal, Painless ROM Cardiovascular/Chest: Positive for: Regular Rate, Rhythm Respiratory: Positive for: CNT, Normal Breath Sounds Gastrointestinal/Abdominal: Positive for: Normal Exam, Soft Back: Positive for: Normal Inspection Extremity: Positive for: Normal ROM Neurologic/Psych: Positive for: Alert, Oriented - ECG O2 Sat by Pulse Oximetry: 99 Pulse Ox Interpretation: Normal - Progress ED Course And Treament: 1723: Stable. AAOx3. Crisis saw pt. Dr. Barbosa says no admit criteria. Fu outpt. Disposition - Clinical Impression Clinical Impression: Schizoaffective disorder - Patient ED Disposition Is Patient to be Admitted: No Counseled Patient/Family Regarding: Diagnosis, Need For Followup - Disposition Referrals: [facility] [Outside] - 01/05/18 Disposition: Routine/Home Disposition Time: 17:24 Condition: STABLE Additional Instructions: Return if not better in 3 days. Instructions: Schizoaffective Disorder Forms: [facility] ED School/Work Excuse
[2018-01-04 18:00] LABS: BASO % 0.5 % (0.0-2.0); EOS % 0.2 % (0.0-4.0); HEMOGLOBIN 13.4 g/dL (12.0-18.0); LYMPH % 16.4 % (20.0-40.0); MEAN CELL VOLUME 79.2 fl (80.0-94.0); MEAN CORPUSCULAR HEMOGLOBIN 25.7 pg (27.0-31.0); MEAN CORPUSCULAR HGB CONC 32.4 g/dL (33.0-37.0); MEAN PLATELET VOLUME 9.7 fl (7.2-11.7); MONO # 0.9 K/uL (0.0-0.8); NEUT # 4.3 K/uL (1.8-7.0); NEUT % 68.9 % (50.0-75.0); RBC 5.22 Mil/uL (4.40-5.90); RED CELL DISTRIBUTION WIDTH 13.7 % (11.5-14.5); WHITE BLOOD COUNT 6.2 K/uL (4.8-10.8)
[2018-01-04 18:16] LABS: ALB/GLOB RATIO 1.2 (1.0-2.1); ALBUMIN 4.2 g/dL (3.5-5.0); ALT/SGPT 23 U/L (21-72); AST/SGOT 18 U/L (17-59); BLOOD UREA NITROGEN 6 mg/dl (9-20); CALCIUM 9.6 mg/dL (8.4-10.2); GFR NON-AFRICAN AMERICAN > 60
[2018-01-04 19:13] LABS: BARBITURATES, UR NEGATIVE (NEGATIVE); BENZODIAZEPINES, UR NEGATIVE (NEGATIVE); OPIATES, UR NEGATIVE (NEGATIVE); PHENCYCLIDINE, UR NEGATIVE (NEGATIVE)
[2018-01-04 19:30] VITALS: O2SAT 97
[2018-01-04] MEDS ORDERED: Alum-Mag Hydrox-Simethicone Susp (30 mL) PO PRN (21:21)
[2018-01-04] MEDS ORDERED: Magnesium Hydroxide Susp 30 ml UD PO PRN (21:21)
[2018-01-04] MEDS ORDERED: DiphenhydrAMINE 50 mg/ml Inj IM PRN (21:21)
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
[2018-01-05 08:37] VITALS: RESP 18
[2018-01-05 09:16] LABS: T4 6.85 ug/dl (5.5-11.0)
--- NOTE | 2018-01-05 12:38 | PCM.PSYCH ---
Initial Psychiatric Evaluation - Initial Psychiatric Evaluation Type of Admission: Voluntary Legal Status: Capacity Chief Complaint (in patient's own words): I want to end my life and I have no reason to live History of Present Illness and Precipitating Events: pt is 37ys old male with previous diagnosis of depression/ schizoaffective disorder, with multiple hospitalizations, pt has been recently discharged from [facility] reported for past three weeks has been non compliant with medications or follow up, has been feeling increasingly depressed, poor motivation, low energy feeling hopeless and helpless , increased sleep, poor concentration, lack of interest in any activity on day of evaluation pt started having suicidal ideation with plan to shoot himself with a gun, cAME TO er SEEKING HELP ON THE UNIT PT CONTINUES TO REPORT PASSIVE SUICIDAL IDEATION WITHOUT ACTIVE PLAN DENIED PERCEPTUAL DISTURBANCES DENIED HOMICIDAL IDEATION Current Medications: Active Medications Generic Name Dose Route Start Last Admin Trade Name Freq PRN Reason Stop Dose Admin Acetaminophen 650 mg 01/04/18 21:21 Tylenol 325mg Tab PO Q4 PRN pain level 4-7 Al Hydrox/Mg Hydrox/Simethicone 30 ml 01/04/18 21:21 Maalox Plus 30 Ml PO Q4 PRN Dyspepsia Bupropion HCl 75 mg 01/05/18 12:30 Wellbutrin PO DAILY PORTILLO Diphenhydramine HCl 50 mg 01/04/18 21:21 Benadryl IM Q6 PRN Extrapyramidal S/S Unable PO Diphenhydramine HCl 50 mg 01/04/18 21:21 Benadryl PO Q6 PRN Extrapyramidal Symptoms Diphenhydramine HCl 50 mg 01/04/18 21:27 01/04/18 22:17 Benadryl PO 50 mg HS PRN Administration Sleep Haloperidol 5 mg 01/04/18 21:21 Haldol PO Q4 PRN Agitation Haloperidol Lactate 5 mg 01/04/18 21:21 Haldol IM Q4 PRN Agitation, Unable to Take PO Lorazepam 1 mg 01/04/18 21:21 Ativan IM Q8H PRN Anxiety/Agitation,Unable PO Lorazepam 1 mg 01/04/18 21:21 Ativan PO Q8H PRN Anxiety/Agitation Magnesium Hydroxide 30 ml 01/04/18 21:21 Milk Of Magnesia PO HS PRN Constipation Past Psychiatric History - Past Psychiatric History Explanation of prior treatment: MULTIPLE HOSPITALIZATIONS, HX OF NON COMPLIANCE History of ETOH/Drug Use: non reported Pertinent Medical Hx (Current Medical&Sleep Prob, Allergies): Allergies Allergy/AdvReac Type Severity Reaction Status Date / Time No Known Allergies Allergy Verified 01/04/18 14:57 No Known Home Med 01/04/18 Mental Status Examination - Personal Presentation Personal Presentation: Looks stated age - Affect Affect: Constricted, Depressed - Motor Activity Motor Activity: Psychomotor Retardation - Reliability in Providing Information Reliability in Providing Information: Poor, due to altered mood - Speech Speech: Tangential - Mood Mood: Depressed, Anxious - Formal Thought Process Formal Thought Process: Circumstantial - Hallucinations/Delusions Additional comments: pt denied perceptual disturbances - Obsessions/Compulsions Obsessions: No Compulsions: No - Cognitive Functions Orientation: Person, Place Sensorium: Alert Abstract Thinking: [place] Judgement: Imparied, as evidence by: Poor judgement, Imparied, as evidence by: Lack of insight into illness - Risk Risk: Suicidal, Diminished functioning - Strength & Assets Inventory Strength & Assets Inventory: Family support - Limitations Additional comments: poor compliance DSM 5 DX - DSM 5 DSM 5 Diagnosis: 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
--- NOTE | 2018-01-05 16:38 | CARD ---
APPROVED REPORT Date of service: 01/05/2018 EKG Measurement Heart [id number] <Conclusion> Normal sinus rhythm Normal ECG
--- NOTE | 2018-01-06 13:16 | PCM.PYCHPN ---
Psychiatric Progress Note - Psychiatric Progress Note Patient seen today, length of contact: pt evaluated discussed with team chart reviewed Patient Chief Complaint: I do not find a reason for me to continue living Problems Identified/Issues Discussed: pt evaluated, continues to isolate himself in his room, presenting with depressed mood and affect, anhedonia low energy poor motivation, feeling hopeless and helpless ,lack of interest, passive suicidal ideation stating he has no interest in life , CBT provided discussed with patient healthier positive thoughts and the need to challenge the negative cognition, discussed increasing dose of wellbutrin, no current reported side effects encouraged pt to participate in treatment and attend groups pt denied active suicidal plan or intent on the unit, denied perceptual disturbances Medical Problems: MULTIPLE HOSPITALIZATIONS, HX OF NON COMPLIANCE DSM 5 Symptoms Update: major dperession borderline personality disorder Medication Change: Yes (increase wellbutrin) Medical Record Reviewed: Yes Mental Status Examination - Cognitive Function Orientation: Person, Place Memory: Intact Attention: WNL Concentration: WNL Association: WNL Fund of Knowledge: Poor Decription of patient's judgement and insights: partial insight poor judgment - Mood Mood: Depressed, Anxious - Affect Affect: Constricted, Depressed - Speech Speech: Soft - Formal Thought Process Formal Thought Process: Circumstantial Psychotic Thoughts and Behaviors: pt has ideas of refernce - Suicidal Ideation Suicidal Ideation: No - Homicidal Ideation Homicidal Ideation: No Goal/Treatment Plan - Goal/Treatment Plan Need for Continued Stay: Severe depression anxiety, Discharge may exacerbated symptoms, Failed transitioning, Severe functional impairment Progress Toward Problem(s) and Goals/Treatment Plan: increase wellbutrin 75mg BID and increase gradually trazodone 200mg qhs CBT group and suupportive therapy iENCOURAGE TO ATTEND GROUPS disposition planning
[2018-01-07 12:37] LABS: BASO % 0.4 % (0.0-2.0); EOS # 0.3 K/uL (0.0-0.7); EOS % 4.9 % (0.0-4.0); HEMOGLOBIN 13.7 g/dL (12.0-18.0); LYMPH # 1.8 K/uL (1.0-4.3); LYMPH % 33.5 % (20.0-40.0); MEAN CELL VOLUME 79.4 fl (80.0-94.0); MEAN CORPUSCULAR HGB CONC 31.4 g/dL (33.0-37.0); MEAN PLATELET VOLUME 10.6 fl (7.2-11.7); MONO # 0.5 K/uL (0.0-0.8); MONO % 10.4 % (0.0-10.0); NEUT # 2.7 K/uL (1.8-7.0); NEUT % 50.8 % (50.0-75.0); NRBC % 0.1 % (0.0-0.0); RBC 5.49 Mil/uL (4.40-5.90); RED CELL DISTRIBUTION WIDTH 13.6 % (11.5-14.5); WHITE BLOOD COUNT 5.2 K/uL (4.8-10.8)
--- NOTE | 2018-01-07 12:52 | PCM.PYCHPN ---
Psychiatric Progress Note - Psychiatric Progress Note Patient seen today, length of contact: pt evaluated discussed with team chart reviewed Patient Chief Complaint: I still feel I have no need to live Problems Identified/Issues Discussed: pt evaluated, continues to report feeling depressed, poor motivation, low energy , stated he feels a little hopefull after discussing with social security assessor possibility of starting partial hospital on discharge, discussed gradual i ncrease in wellbutrin, no reported side effects,CBT provided, discussed with pt heathier positive thoughts and the need to challenge negative thoughts , encouraged to continue to attend groups, pt denied any current changes in sleep or appetite pt denied active suicidal plan or intent on the unit, denied perceptual disturbances Medical Problems: MULTIPLE HOSPITALIZATIONS, HX OF NON COMPLIANCE DSM 5 Symptoms Update: major depression recurrent 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 Medication Change: No (increase wellbutrin) Medical Record Reviewed: Yes Mental Status Examination - Cognitive Function Orientation: Person, Place Memory: Intact Attention: WNL Concentration: WNL Association: WNL Fund of Knowledge: Poor Decription of patient's judgement and insights: partial insight poor judgment - Mood Mood: Depressed, Anxious - Affect Affect: Constricted, Depressed - Speech Speech: Soft - Formal Thought Process Formal Thought Process: Circumstantial Psychotic Thoughts and Behaviors: pt has ideas of refernce - Suicidal Ideation Suicidal Ideation: No - Homicidal Ideation Homicidal Ideation: No Goal/Treatment Plan - Goal/Treatment Plan Need for Continued Stay: Severe depression anxiety, Discharge may exacerbated symptoms, Failed transitioning, Severe functional impairment Progress Toward Problem(s) and Goals/Treatment Plan: wellbutrin 75mg BID and increase gradually trazodone 200mg qhs CBT group and suupportive therapy ENCOURAGE TO ATTEND GROUPS referral to partial hospital program on discharge Estimated Date of D/C: 01/12/18
--- NOTE | 2018-01-07 21:48 | CON ---
DATE: 01/07/2018 INITIAL CONSULTATION HISTORY OF PRESENT ILLNESS: This is a 37-year-old male with no significant past medical history who was admitted to psychiatry work. Medical consultation was called for medical followup while the patient is in the floor. The patient denied to have any past medical history or he is not taking any medications. He denied any previous admission to the hospital for medical reasons. Other review of systems is negative. ALLERGIES: NO KNOWN ALLERGY. MEDICATIONS: None. SOCIAL HISTORY: No history of smoking, EtOH or substance abuse. FAMILY HISTORY: Noncontributory. PHYSICAL EXAMINATION: GENERAL: The patient is in bed comfortable, not in any cardiopulmonary distress. VITAL SIGNS: Blood pressure 121/73, temperature 98.2, respiratory rate 18, pulse 77. HEENT: Pupils equal and reactive to light. Normal-appearing mucosa of the conjunctivae, oropharynx, and nasal membrane mucosa. NECK: Supple. No JVD. No carotid bruit. No lymph node. No thyromegaly. CHEST AND LUNGS: Bilateral symmetrical expansion. Good air exchange. No rales. No rhonchi. CARDIOVASCULAR SYSTEM: PMI not localized. S1 and S2. No additional sounds. ABDOMEN: Normoactive bowel sounds. No tenderness. No organomegaly. No masses. EXTREMITIES: No cyanosis. No clubbing. No edema. VALVE GRINDER: Alert, awake, and oriented x2. No neurological deficit could be appreciated. ASSESSMENT: 1. Microcytosis likely secondary to trait a-thalassemia with normal hemoglobin. 2. Monocytosis of no apparent etiology. PLAN: We will repeat CBC with differential, and we will follow with you. Hector Licea MD
--- NOTE | 2018-01-08 17:50 | PCM.PYCHPN ---
Psychiatric Progress Note - Psychiatric Progress Note Patient seen today, length of contact: pt evaluated discussed with team chart reviewed Patient Chief Complaint: feeling overwhelmed stressed at home did know how to manage stressors of life was suicidal now defers Problems Identified/Issues Discussed: alteration in mood alteration in self care Medical Problems: per chart Diagnostic Results: per psychiatry per medicine per nursing per social work per recreational therapy Medication Change: No Medical Record Reviewed: Yes Consults ordered or reviewed: pt seen by hospitalist Mental Status Examination - Cognitive Function Orientation: Person, Place Memory: Intact Attention: WNL Concentration: WNL Association: WNL Fund of Knowledge: Poor Decription of patient's judgement and insights: pt deferred - Mood Mood: Depressed, Anxious - Affect Affect: Constricted, Depressed - Speech Speech: Soft - Formal Thought Process Formal Thought Process: Circumstantial - Suicidal Ideation Plan: contracts for safety - Homicidal Ideation Homicidal Ideation: No Goal/Treatment Plan - Goal/Treatment Plan Need for Continued Stay: Severe depression anxiety, Discharge may exacerbated symptoms, Failed transitioning, Severe functional impairment Progress Toward Problem(s) and Goals/Treatment Plan: inpt milieu adjust meds per status vital signs and clinical observation per protocol and clinical status discharge planning in progress Estimated Date of D/C: 01/12/18 - Smoking Cessation Smoking Cessation Initiated: No Reason for not providing: defers
--- NOTE | 2018-01-09 19:52 | PCM.PYCHPN ---
Psychiatric Progress Note - Psychiatric Progress Note Patient seen today, length of contact: pt evaluated discussed with team chart reviewed Patient Chief Complaint: pt has submitted 48 hour notice, was reporting decreased hope with suicidal ideation without plan. reflects on 48 hour notice and agreed to rescind. pt has been had adherent with medications. seen about unit at times keeping to self somewhat. Problems Identified/Issues Discussed: alteration in mood alteration in self care Medical Problems: per chart Diagnostic Results: per psychiatry per medicine per nursing per social work per recreational therapy DSM 5 Symptoms Update: impaired mood and cognition Medication Change: No Medical Record Reviewed: Yes Consults ordered or reviewed: pt seen by hospitalist Mental Status Examination - Cognitive Function Orientation: Person, Place Memory: Intact Attention: WNL Concentration: WNL Association: WNL Fund of Knowledge: Poor Decription of patient's judgement and insights: pt deferred - Mood Mood: Depressed, Anxious - Affect Affect: Constricted, Depressed - Speech Speech: Soft - Formal Thought Process Formal Thought Process: Circumstantial - Suicidal Ideation Suicidal Ideation: No - Homicidal Ideation Homicidal Ideation: No Goal/Treatment Plan - Goal/Treatment Plan Need for Continued Stay: Severe depression anxiety, Discharge may exacerbated symptoms, Failed transitioning, Severe functional impairment Progress Toward Problem(s) and Goals/Treatment Plan: inpt milieu adjust meds per status vital signs and clinical observation per protocol and clinical status increase wellbutrin to sr 150mg po am, wellbutrin 75mg po 1600 assess pt for possible s/s of serotonin syndrome (trazodone/buproprion) pt rescinded 48 hour notice, discontinue order for screening [facility] [place] planning in progress Estimated Date of D/C: 01/12/18 - Smoking Cessation Smoking Cessation Initiated: No Reason for not providing: pt defers
[2018-01-10] MEDS: buPROPion SR 150 MG TABLET PO SCH (12:45)
[2018-01-10] MEDS ORDERED: Influenza Vaccine (5 YR UP)/PF 60 MCG/0.5 ML SYR IM ONE (14:21)
--- NOTE | 2018-01-10 16:01 | PCM.PYCHPN ---
Psychiatric Progress Note - Psychiatric Progress Note Patient seen today, length of contact: pt evaluated discussed with team chart reviewed Patient Chief Complaint: I am less depressed but I am worried about the outside world Problems Identified/Issues Discussed: pt evaluated,reported feeling less depressed with wellbutrin, denied side effects , observed on the unit attending groups, participating in treatment, no reported changes in sleep or appetite , stated feeling anxious about discharge , CBT provided discussed with pt need to challenge negative thoughts, also discussed referral to partal program on discharge pt denied active suicidal plan or intent on the unit, denied perceptual disturbances Medical Problems: MULTIPLE HOSPITALIZATIONS, HX OF NON COMPLIANCE DSM 5 Symptoms Update: major depression borderline personality disorder Medication Change: No Medical Record Reviewed: Yes Mental Status Examination - Cognitive Function Orientation: Person, Place Memory: Intact Attention: WNL Concentration: WNL Association: WNL Fund of Knowledge: Poor - Mood Mood: Depressed, Anxious - Affect Affect: Constricted, Depressed - Speech Speech: Soft - Formal Thought Process Formal Thought Process: Circumstantial - Suicidal Ideation Suicidal Ideation: No - Homicidal Ideation Homicidal Ideation: No Goal/Treatment Plan - Goal/Treatment Plan Need for Continued Stay: Severe depression anxiety, Discharge may exacerbated symptoms, Failed transitioning, Severe functional impairment Progress Toward Problem(s) and Goals/Treatment Plan: wellbutrin 150mg daily and 75 mg q4pm trazodone 200mg qhs CBT group and suupportive therapy [facility] Estimated Date of D/C: 01/12/18
[2018-01-11] MEDS: buPROPion SR 150 MG TABLET PO SCH (11:22)
--- NOTE | 2018-01-11 15:12 | PCM.PYCHPN ---
Psychiatric Progress Note - Psychiatric Progress Note Patient seen today, length of contact: pt evaluated discussed with team chart reviewed Patient Chief Complaint: I agree to start a partial program Problems Identified/Issues Discussed: pt evaluated, with treatment team, no reported side effects of medications,observed interacting with other patients, attending groups, no noted changes in sleep or appetite , discussed with pt referral to partial program on discharge, pt agreed pt denied active suicidal plan or intent , denied perceptual disturbances Medical Problems: MULTIPLE HOSPITALIZATIONS, HX OF NON COMPLIANCE DSM 5 Symptoms Update: 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 depression hx of schizoaffective disorder Medication Change: No Medical Record Reviewed: Yes Mental Status Examination - Cognitive Function Orientation: Person, Place Memory: Intact Attention: WNL Concentration: WNL Association: [facility] Fund of Knowledge: [facility] Decription of patient's judgement and insights: partial insight, fair judgment - Mood Mood: Anxious - Affect Affect: Constricted - Speech Speech: Appropriate - Formal Thought Process Formal Thought Process: Circumstantial Psychotic Thoughts and Behaviors: pt denied psychotic symptoms, non elicited - Suicidal Ideation Suicidal Ideation: No - Homicidal Ideation Homicidal Ideation: No Goal/Treatment Plan - Goal/Treatment Plan Need for Continued Stay: Severe depression anxiety, Discharge may exacerbated symptoms, Failed transitioning, Severe functional impairment Progress Toward Problem(s) and Goals/Treatment Plan: wellbutrin 150mg daily and 75 mg q4pm trazodone 200mg qhs CBT group and suupportive therapy referral to partial hospital program on discharge Estimated Date of D/C: 01/12/18
[2018-01-11 18:33] VITALS: BP 102/64; PULSE 78; TEMP 97.7
[2018-01-12] MEDS: buPROPion SR 150 MG TABLET PO SCH (09:36)
--- NOTE | 2018-01-12 14:33 | PCM.PYCHDC ---
Mental Status Examination - Mental Status Examination Orientation: Person, Place, Situation Memory: Intact Mood: Neutral Affect: Broad Speech: Appropriate Attention: WNL Concentration: WNL Association: WNL Fund of Knowledge: WNL Formal Thought Process: No Impairment Description of patient's judgement and insight: partial insight, fair judgment Psychotic Thoughts and Behaviors: pt denied psychotic symptoms, non elicited Suicidal Ideation: No Current Homicidal Ideation?: No Discharge Summary - Discharge Note Reason for Hospitalization: pt is 37ys old male with previous diagnosis of depression/ schizoaffective disorder, with multiple hospitalizations, pt has been recently discharged from [facility] reported for past three weeks has been non compliant with medications or follow up, has been feeling increasingly depressed, poor motivation, low energy feeling hopeless and helpless , increased sleep, poor co ncentration, lack of interest in any activity on day of evaluation pt started having suicidal ideation with plan to shoot himself with a gun, cAME TO er SEEKING HELP ON THE UNIT PT CONTINUES TO REPORT PASSIVE SUICIDAL IDEATION WITHOUT ACTIVE PLAN DENIED PERCEPTUAL DISTURBANCES DENIED HOMICIDAL IDEATION Psychiatric History (includes Medical, Family, Personal Hx): pt [facility], hx of non compliance Consultations:: List each consultation separately and include: 1. Reason for request. 2. Findings. 3. Follow-up Summary of Hospital Course include:: 1. Description of specific treatment plan utilized for patients during their course of treatmen. 2. Summarize the time- course for resolution of acute symptoms and/or regressed behaviors. 3. Describe issues identified and worked on during hospitalization. 4. Describe medication utilized. 5. Describe medical problems identified and treated. 6. Reassessment of suicide risk Summary of Hospital Course: pt on admission was presenting with depressed mood and affect and passive suicidal ideation without active plan pt was started on wellbutrin 75mg it was gradually uptitrated to 225mg daily, no reported side effects pt attended groups, was compliant with treatment, observed on the unit socializing with other patients and interacting with staff, pt had no noted changes in sleep or appetite, presented with euthymic mood and affect CBT was provided , discussed with pt healthy coping skills with stress other than self harm, supportive therapy provided with advise on problem solving advised pt importance of 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, pt agreed was able to verbalize set goals on discharge,including starting to volunteer in a nearby hospital on discharge pt mental status was stable, pt denied any current thoughts of self harm, denied suicidal or homicidal ideation, denied perceptual disturbances pt at current mental status not danbger to self or others, would start follow up at [facility] as arranged by social problems specialist - Diagnosis (1) Depression Current Visit: No Status: Acute - Final Diagnosis (DSM 5) Condition upon Discharge: STABLE DSM 5: borderline personality disorder depressive disorder hx of schizoaffective disorder Disposition: HOME/ ROUTINE Prescriptions/Medication Reconciliation: buPROPion [Wellbutrin] 75 mg PO 1600 30 Days #30 tab buPROPion SR [Wellbutrin SR 150 MG] 150 mg PO DAILY 30 Days #30 tab traZODone [Desyrel] 200 mg PO HS 30 Days #30 tab - Antipsychotic Medications Pt discharged on 2 or more routine antipsychotic medications: No
== END 2018-01-12 15:30 | disposition home or self-care (01) | DRG 885 ==
LOC: H.ER 14:55 → H.ERHOLD 17:47 → H.PSYCH 21:14
PROVIDERS: ADMIT Psychiatry & Neurology Psychiatry; ATTEND Psychiatry & Neurology Psychiatry
DX: F33.2 Major depressive disorder, recurrent severe without psychotic features (principal); R45.851 Suicidal ideations; F25.9 Schizoaffective disorder, unspecified; F60.3 Borderline personality disorder; F60.7 Dependent personality disorder; D56.9 Thalassemia, unspecified; D72.821 Monocytosis (symptomatic); Z91.19 Patient's noncompliance with other medical treatment and regimen; Z91.14 Patient's other noncompliance with medication regimen

== ENCOUNTER 2018-01-18 23:27 | Inpatient (IN) | payer OTHER ==
[2018-01-19 01:14] LABS: BASO % 0.5 % (0.0-2.0); EOS # 0.2 K/uL (0.0-0.7); EOS % 2.5 % (0.0-4.0); HEMOGLOBIN 14.1 g/dL (12.0-18.0); LYMPH # 2.2 K/uL (1.0-4.3); LYMPH % 25.3 % (20.0-40.0); MEAN CELL VOLUME 78.3 fl (80.0-94.0); MEAN CORPUSCULAR HEMOGLOBIN 25.8 pg (27.0-31.0); MEAN PLATELET VOLUME 9.9 fl (7.2-11.7); MONO % 11.6 % (0.0-10.0); NEUT # 5.3 K/uL (1.8-7.0); NEUT % 60.1 % (50.0-75.0); RBC 5.45 Mil/uL (4.40-5.90); RED CELL DISTRIBUTION WIDTH 13.9 % (11.5-14.5); WHITE BLOOD COUNT 8.8 K/uL (4.8-10.8)
[2018-01-19 01:23] LABS: URINE AMORPHOUS SEDIMENT RARE /ul (<OCC); URINE BACTERIA RARE (<OCC); URINE BILIRUBIN NEGATIVE (NEGATIVE); URINE BLOOD NEGATIVE (NEGATIVE); URINE CLARITY SLIGHTY-CLOUDY (Clear); URINE COLOR YELLOW (YELLOW); URINE GLUCOSE (UA) NEG (Normal); URINE LEUKOCYTE ESTERASE NEG Leu/uL (Negative); URINE PROTEIN 30 mg/dL (NEGATIVE)
[2018-01-19 01:24] LABS: BLOOD UREA NITROGEN 15 mg/dl (9-20); CALCIUM 9.7 mg/dL (8.4-10.2); GFR NON-AFRICAN AMERICAN > 60
[2018-01-19 01:35] LABS: ACETAMINOPHEN < 10.0 ug/ml (10.0-30.0); SALICYLATE < 1.0 mg/dl
[2018-01-19 01:36] LABS: BARBITURATES, UR NEGATIVE (NEGATIVE); BENZODIAZEPINES, UR NEGATIVE (NEGATIVE); OPIATES, UR NEGATIVE (NEGATIVE); PHENCYCLIDINE, UR NEGATIVE (NEGATIVE)
--- NOTE | 2018-01-19 03:42 | ED PDOC ---
HPI: Psych/Substance Abuse Time Seen by Provider: 01/18/18 23:37 Chief Complaint (Nursing): Psychiatric Evaluation Chief Complaint (Provider): Psychiatric Evaluation History Per: Patient History/Exam Limitations: no limitations Onset/Duration Of Symptoms: Hrs Current Symptoms Are (Timing): Still Present Associated Symptoms: Suicidal Thoughts, Suicidal Plan Additional Complaint(s): 37 year old male with PMHx of schizoaffective disorder presents to the ER for psychiatric evaluation. Patient admits to suicidal ideation and states he was to buy a gun and shoot himself. He denies using drugs or drinking alcohol. PMD: Alphonso Hanks Past Medical History Reviewed: Historical Data, Nursing Documentation, Vital Signs Vital Signs: Last Vital Signs Temp 98.2 F 01/18/18 23:29 Pulse 72 01/18/18 23:29 Resp 16 01/18/18 23:29 BP 143/80 01/18/18 23:29 Pulse Ox 99 01/18/18 23:29 - Medical History PMH: Bipolar Disorder, Depression, Schizophrenia Denies: Diabetes, Hepatitis, HIV, HTN, Chronic Kidney Disease, Seizures, Sexually Transmitted Disease - Family History Family History: States: Unknown Family Hx - Social History Current smoker - smoking cessation education provided: No Alcohol: None Drugs: Denies - Immunization History Hx Tetanus Toxoid Vaccination: No Hx Influenza Vaccination: Yes Hx Pneumococcal Vaccination: No - Home Medications Home Medications: Ambulatory Orders Medication Instructions Recorded buPROPion SR [Wellbutrin SR 150 MG] 150 mg PO DAILY 30 Days #30 tab 01/12/18 buPROPion [Wellbutrin] 75 mg PO 1600 30 Days #30 tab 01/12/18 traZODone [Desyrel] 200 mg PO HS 30 Days #30 tab 01/12/18 - Allergies Allergies/Adverse Reactions: Allergies Allergy/AdvReac Type Severity Reaction Status Date / Time No Known Allergies Allergy Verified 01/18/18 23:28 Review of Systems ROS Statement: Except As Marked, All Systems Reviewed And Found Negative Constitutional: Negative for: Fever Cardiovascular: Negative for: Chest Pain Gastrointestinal: Negative for: Abdominal Pain Psych: Positive for: Suicidal ideation Physical Exam - Reviewed Nursing Documentation Reviewed: Yes Vital Signs Reviewed: Yes - Physical Exam Appears: Positive for: Non-toxic, No Acute Distress Head Exam: Positive for: ATRAUMATIC, NORMAL INSPECTION, NORMOCEPHALIC Skin: Positive for: Normal Color, Warm, Dry Eye Exam: Positive for: Normal appearance, EOMI, PERRL ENT: Positive for: Normal ENT Inspection Neck: Positive for: Normal, Painless ROM, Supple. Negative for: Decreased ROM Cardiovascular/Chest: Positive for: Regular Rate, Rhythm. Negative for: Murmur Respiratory: Positive for: Normal Breath Sounds. Negative for: Decreased Breath Sounds, Wheezing, Respiratory Distress Gastrointestinal/Abdominal: Positive for: Normal Exam, Soft. Negative for: Tenderness, Guarding, Rebound Back: Positive for: Normal Inspection. Negative for: L CVA Tenderness, R CVA Tenderness Extremity: Positive for: Normal ROM. Negative for: Tenderness, Pedal Edema, Deformity Neurologic/Psych: Positive for: Alert, Oriented (x3). Negative for: Motor/Sensory Deficits - Laboratory Results Result Diagrams: 01/19/18 01:00 01/19/18 01:00 - ECG O2 Sat by Pulse Oximetry: 99 (RA) Pulse Ox Interpretation: Normal Medical Decision Making Medical Decision Making: Time: 38 Initial Impression: 37 year old male with schizoaffective disorder and suicidal ideation Initial Plan: --1:1 Observation Time: 99 --Acetaminophen --Alcohol Serum --BMP --Drug Screen, Urine --Salicylate --CBC w/ Differential --Reevaluation Time: [address] Barbosa and patient diagnosed with depression. To be admitted to psych. Scribe Attestation: Documented by Elaine Gibson acting as a scribe for Jon Davenport MD Provider Scribe Attestation: All medical record entries made by the Scribe were at my direction and personally dictated by me. I have reviewed the chart and agree that the record accurately reflects my personal performance of the history, physical exam, medical decision making, and the department course for this patient. I have also personally directed, reviewed, and agree with the discharge instructions and disposition. Disposition - Clinical Impression Clinical Impression: Depression - Patient ED Disposition Is Patient to be Admitted: Yes - Disposition Disposition Time: 03:16 Condition: FAIR
[2018-01-19] MEDS ORDERED: DiphenhydrAMINE 50 mg/ml Inj IM PRN (04:36)
[2018-01-19] MEDS ORDERED: Magnesium Hydroxide Susp 30 ml UD PO PRN (04:36)
[2018-01-19] MEDS ORDERED: Alum-Mag Hydrox-Simethicone Susp (30 mL) PO PRN (04:36)
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
[2018-01-19 05:30] VITALS: O2SAT 99
[2018-01-19 07:17] LABS: T4 8.82 ug/dl (5.5-11.0)
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
--- NOTE | 2018-01-20 02:26 | CON ---
DATE: 01/19/2018 HISTORY OF PRESENT ILLNESS: This is a 37-year-old male with no significant past medical history, admitted to [facility]. Medical consultation was called for medical followup while the patient is in the psychiatric floor. The patient denied to have any past medical history or he is not taking any medications. The patient denied any previous admission to the hospital or any surgeries. REVIEW OF SYSTEMS: Negative. ALLERGIES: NO KNOWN ALLERGIES. MEDICATIONS: None. SOCIAL HISTORY: No history of smoking, ETOH or substance abuse. FAMILY HISTORY: Not contributory. PHYSICAL EXAMINATION: GENERAL: The patient is not in any cardiopulmonary distress. VITAL SIGNS: Blood pressure 120/70, temperature 98.4, respiratory rate 16 and pulse 70. HEENT: Pupils equal and reactive to light. Normal appearing mucosa of the conjunctivae, oropharynx, nasal membrane mucosa. NECK: Supple. No JVD. No carotid bruits. No lymph nodes. No thyromegaly. CHEST AND LUNGS: Bilateral symmetrical expansion. Good air exchange. No rales. No rhonchi. CARDIOVASCULAR SYSTEM: PMI not localized. S1 and S2. No additional sounds. ABDOMEN: Normoactive bowel sounds. No tenderness. No organomegaly. No masses. EXTREMITIES: No cyanosis. No clubbing. No edema. MEMBERSHIP COUNSELOR: Alert, awake and oriented x2. No neurologic deficits could be appreciated. ASSESSMENT: Possible alpha thalassemia trait as the patient has microcytosis with normal hemoglobin. Otherwise, normal physical examination. PLAN: We will follow up with the patient with you for any medical needs. Hector Licea MD
--- NOTE | 2018-01-20 13:26 | PCM.PYCHPN ---
Psychiatric Progress Note - Psychiatric Progress Note Patient seen today, length of contact: pt evaluated discussed with team chart reviewed Patient Chief Complaint: I have no energy to leave my room Problems Identified/Issues Discussed: pt seen in his room, dressed in hospital gown, not attending to personal appearance or hygiene. reported poor motivation, poor interest . reporting passive suicidal ideation stating he wishes he would not be alive , denied active suicidal plan on the unit, denied perceptual disturbances, discussed with pt increasing dose of abilify, CBT provided discussed with pt the need to challenge current automatic negative thoughts, encouraged pt to attend groups Medical Problems: multiple hospitalizations hx of non compliance DSM 5 Symptoms Update: bipolar disorder depressed 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 Medication Change: Yes (increase abilify 20mg ) Medical Record Reviewed: No Mental Status Examination - Cognitive Function Orientation: Person, Place, Situation Attention: WNL Concentration: WNL Association: WNL Fund of Knowledge: [facility] Decription of patient's judgement and insights: partial insight, poor judgment - Mood Mood: Depressed, Anxious - Affect Affect: Constricted, Depressed - Speech Speech: Soft - Formal Thought Process Formal Thought Process: Circumstantial Psychotic Thoughts and Behaviors: denied - Suicidal Ideation Suicidal Ideation: No - Homicidal Ideation Homicidal Ideation: No Goal/Treatment Plan - Goal/Treatment Plan Need for Continued Stay: Severe depression anxiety, Discharge may exacerbated symptoms Progress Toward Problem(s) and Goals/Treatment Plan: increase abilify 20mg daily trazodone 100mg qhs cbt group and supportive therapy
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
[2018-01-21] MEDS: Divalproex 500 mg ER (ONCE DAILY formulation) PO SCH (21:13)
--- NOTE | 2018-01-22 09:12 | PCM.PYCHPN ---
Psychiatric Progress Note - Psychiatric Progress Note Patient seen today, length of contact: pt evaluated discussed with team chart reviewed Patient Chief Complaint: pt has remained depressed,irritible and paranoid and isolating in his room and does not want to talk about his issues and remains with poor insight and poor judgement and need further stabilization.no side effects to abilify and depakote and tolerate it well. Medication Change: Yes (start depakote ) Medical Record Reviewed: Yes Mental Status Examination - Cognitive Function Orientation: Person, Place, Situation Attention: WNL Concentration: WNL Association: WNL Fund of Knowledge: WNL - Mood Mood: Depressed, Anxious - Affect Affect: Constricted, Depressed - Speech Speech: Soft - Formal Thought Process Formal Thought Process: Circumstantial - Suicidal Ideation Suicidal Ideation: No - Homicidal Ideation Homicidal Ideation: No Goal/Treatment Plan - Goal/Treatment Plan Need for Continued Stay: Severe depression anxiety, Discharge may exacerbated symptoms Progress Toward Problem(s) and Goals/Treatment Plan: will continue to titrate and adjust the dose of abilify and depakote as needed and check VPA level Disposition as per dr dhillon.
[2018-01-22] MEDS: Divalproex 500 mg ER (ONCE DAILY formulation) PO SCH (21:18)
[2018-01-23] MEDS: Divalproex 500 mg ER (ONCE DAILY formulation) PO SCH (21:23)
--- NOTE | 2018-01-24 14:56 | PCM.PYCHPN ---
Psychiatric Progress Note - Psychiatric Progress Note Patient seen today, length of contact: pt evaluated discussed with team chart reviewed Patient Chief Complaint: I have no motivation Problems Identified/Issues Discussed: pt evaluated, seen in bed, dressed in a gown, depressed mood and affect, not attending to personal hygiene, refusing to attend groups, reported low energy, poor motivation, passive suicidal ideation without active plan on the unit, discussed with pt need to participate in treatment, CBT provided, encouraged medication compliance, pt denied perceptual disturbances denied active thoughts of self harm on the unit, denid homicidal ideation Medical Problems: multiple hospitalizations hx of non compliance DSM 5 Symptoms Update: bipolar disorder depressed Medication Change: Yes (increase abilify gradually) Medical Record Reviewed: Yes Mental Status Examination - Cognitive Function Orientation: Person, Place, Situation Attention: WNL Concentration: WNL Association: WNL Fund of Knowledge: WNL - Mood Mood: Depressed, Anxious - Affect Affect: Constricted, Depressed - Speech Speech: Soft - Formal Thought Process Formal Thought Process: Circumstantial - Suicidal Ideation Suicidal Ideation: No - Homicidal Ideation Homicidal Ideation: No Goal/Treatment Plan - Goal/Treatment Plan Need for Continued Stay: Severe depression anxiety, Discharge may exacerbated symptoms Progress Toward Problem(s) and Goals/Treatment Plan: abilify 20mg daily/increase gradually to 30mg depakote 1000mg qhs follow up on depakote level trazodone 100mg qhs cbt group and supportive therapy
[2018-01-24 17:29] VITALS: BP 94/65; PULSE 94; RESP 18; TEMP 97.5
[2018-01-24] MEDS: Divalproex 500 mg ER (ONCE DAILY formulation) PO SCH (21:05)
[2018-01-25 14:11] VITALS: BMI 25.8
--- NOTE | 2018-01-25 14:33 | PCM.PYCHPN ---
Psychiatric Progress Note - Psychiatric Progress Note Patient seen today, length of contact: pt evaluated discussed with team chart reviewed Patient Chief Complaint: I still find difficulty in motivating myself Problems Identified/Issues Discussed: pt evaluated, seen in day room, continues to report low motivation, CBT provided discussed with pt possible alternative positive thoughts, encouraged to attend groups and participate in treatment , no reported side effects of medications denied active thoughts of self harm on the unit, denied perceptual disturbances ,denied homicidal ideation Medical Problems: multiple hospitalizations hx of non compliance DSM 5 Symptoms Update: bipolar disorder depressed borderline personality disorder Medication Change: No Medical Record Reviewed: Yes Mental Status Examination - Cognitive Function Orientation: Person, Place, Situation Memory: Intact Attention: WNL Concentration: WNL Association: WNL Fund of Knowledge: WNL - Mood Mood: Depressed - Affect Affect: Constricted, Depressed - Speech Speech: Appropriate - Formal Thought Process Formal Thought Process: Circumstantial - Suicidal Ideation Suicidal Ideation: No - Homicidal Ideation Homicidal Ideation: No Goal/Treatment Plan - Goal/Treatment Plan Need for Continued Stay: Severe depression anxiety, Discharge may exacerbated symptoms Progress Toward Problem(s) and Goals/Treatment Plan: abilify 20mg daily/ depakote 1000mg depakote level 64 trazodone 100mg qhs cbt group and supportive therapy
[2018-01-25] MEDS: Divalproex 500 mg ER (ONCE DAILY formulation) PO SCH (21:03)
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
--- NOTE | 2018-01-26 14:03 | PCM.PYCHPN ---
Psychiatric Progress Note - Psychiatric Progress Note Patient seen today, length of contact: pt evaluated discussed with team chart reviewed Patient Chief Complaint: I will try to motivate myself and I will continue with outpatient treatment Problems Identified/Issues Discussed: pt evaluated with treatment team, reported motivated to start outpatient program at [facility] after a meeting with case manger from his insurance, continued to provide CBT , discussed with pt alternative positive thoughts and possible coping skills with stress,no reported side effects of medications, no reported changes in sleep or appetite, pt seen in day room socializing with other patients denied active thoughts of self harm on the unit, denied perceptual disturbances ,denied homicidal ideation Medical Problems: multiple hospitalizations hx of non compliance DSM 5 Symptoms Update: bipolar disorder depressed borderline/ dependent personality disorder Medication Change: No Medical Record Reviewed: Yes Mental Status Examination - Cognitive Function Orientation: Person, Place, Situation Memory: Intact Attention: WNL Concentration: WNL Association: WNL Fund of Knowledge: WNL - Mood Mood: Neutral - Affect Affect: Constricted - Speech Speech: Appropriate - Formal Thought Process Formal Thought Process: Circumstantial - Suicidal Ideation Suicidal Ideation: No - Homicidal Ideation Homicidal Ideation: No Goal/Treatment Plan - Goal/Treatment Plan Need for Continued Stay: Severe depression anxiety, Discharge may exacerbated symptoms Progress Toward Problem(s) and Goals/Treatment Plan: abilify 20mg daily/ depakote 1000mg depakote level 64 trazodone 100mg qhs cbt group and supportive therapy
[2018-01-26] MEDS: Divalproex 500 mg ER (ONCE DAILY formulation) PO SCH (21:10)
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
== END 2018-01-27 14:49 | disposition home or self-care (01) | DRG 885 ==
LOC: H.ER 23:27 → H.ERHOLD 01-19 03:16 → H.PSYCH 01-19 04:29
PROVIDERS: ADMIT Psychiatry & Neurology Psychiatry; ATTEND Psychiatry & Neurology Psychiatry
PROC: GZHZZZZ Group Psychotherapy (ICD-10-PCS; principal; 2018-01-19)
PROC: GZ58ZZZ Individual Psychotherapy, Cognitive-Behavioral (ICD-10-PCS; 2018-01-19)
DX: F31.63 Bipolar disorder, current episode mixed, severe, without psychotic features (principal); R45.851 Suicidal ideations; F25.9 Schizoaffective disorder, unspecified; F60.3 Borderline personality disorder; F60.7 Dependent personality disorder; Z91.14 Patient's other noncompliance with medication regimen; Z91.19 Patient's noncompliance with other medical treatment and regimen; Z91.5 Personal history of self-harm